=== PATIENT | male | born 1975 | race American Indian/Alaskan Native ===

== ENCOUNTER 2017-03-02 09:20 | Emergency (ER) | payer OTHER ==
[2017-03-02 09:21] VITALS: BMI 36.9
[2017-03-02] MEDS: Albuterol-Ipratrop 3 mg / 0.5 (3 ml) UD IH SCH ×3 (09:30→10:26)
[2017-03-02] MEDS ORDERED: Magnesium Sulfate 2 GM in Sodium Chloride 0.9% 100 ML IVPB ONE (09:30)
[2017-03-02 09:40] LABS: BASO # 0.06 K/mm3 (0.0-2.0); BASO % 0.6 % (0.0-3.0); EOS # 0.8 (0.0-0.7); EOS % 6.9 % (1.5-5.0); GRAN # 4.43 (1.4-6.5); GRAN % 40.9 % (50.0-68.0); LYMPH % 45.7 % (22.0-35.0); MEAN CELL VOLUME 91.4 fl (80.0-105.0); MEAN CORPUSCULAR HEMOGLOBIN 30.7 pg (25.0-35.0); MEAN CORPUSCULAR HGB CONC 33.6 g/dl (31.0-37.0); MEAN PLATELET VOLUME 11.1 fl (7.0-11.0); MONO # 0.6 (0.1-0.6); MONO % 5.9 % (1.0-6.0); RED CELL DISTRIBUTION WIDTH 14.4 % (11.5-14.5); WHITE BLOOD COUNT 10.8 10^3/ul (4.5-11.0)
[2017-03-02 09:44] VITALS: TEMP 99.2
[2017-03-02 10:06] LABS: TROPONIN I < 0.01 ng/mL
[2017-03-02 10:22] LABS: ALB/GLOB RATIO 1.6 (1.1-1.8); ALKALINE PHOSPHATASE 79 U/L (38-126); ALT/SGPT 33 U/L (7-56); AST/SGOT 30 U/L (17-59); BILIRUBIN,TOTAL 0.9 mg/dL (0.2-1.3); BLOOD UREA NITROGEN 12 mg/dL (7-21); CALCIUM 9.8 mg/dL (8.4-10.5); CARBON DIOXIDE 25 mmol/L (21-33); CHLORIDE 104 mmol/L (98-107); GFR AFRICAN-AMERICAN > 60; GLUCOSE,RANDOM 117 mg/dL (70-110); POTASSIUM 3.8 mmol/L (3.6-5.0); SODIUM 141 mmol/L (132-148); TOTAL PROTEIN 7.6 g/dL (5.8-8.3)
--- NOTE | 2017-03-02 10:46 | RAD ---
HISTORY: cough- r/o infiltrate COMPARISON: 01/10/2014 FINDINGS: LUNGS: No active pulmonary disease. PLEURA: No significant pleural effusion identified, no pneumothorax apparent. CARDIOVASCULAR: Normal. OSSEOUS STRUCTURES: No significant abnormalities. VISUALIZED UPPER ABDOMEN: Normal. OTHER FINDINGS: None. IMPRESSION: No active disease.
--- NOTE | 2017-03-02 10:56 | ED PDOC ---
Arrival/HPI - General Chief Complaint: Respiratory Distress Time Seen by Provider: 03/02/17 09:25 Historian: Patient - History of Present Illness Narrative History of Present Illness (Text): 03/02/17 09:24 A 42 year old male, whose past medical history includes asthma, presents to the emergency department complaining of typical asthma symptoms for 3 days. Patient reports using nebulizer and pump, resulting in some relief. Patient notes positive sick contact at home, but denies of any fever, or any other complaints. No recent travel. No flu shot taken. No PMD Time/Duration: < week (3 days) Past Medical History - Provider Review Nursing Documentation Reviewed: Yes - Infectious Disease Hx of Infectious Diseases: None - Tetanus Immunization Tetanus Immunization: Unknown - Cardiac Hx Cardiac Disorders: Yes (previous visit to ER for CP) - Pulmonary Hx Asthma: Yes - Neurological Hx Neurological Disorder: No - HEENT Hx HEENT Disorder: No - Renal Hx Renal Disorder: No - Endocrine/Metabolic Hx Endocrine Disorders: No - Hematological/Oncological Hx Blood Disorders: No - Integumentary Hx Dermatological Disorder: No - Musculoskeletal/Rheumatological Hx Falls: No Hx Osteoarthritis: Yes - Gastrointestinal Hx Gastrointestinal Disorders: No - Genitourinary/Gynecological Hx Genitourinary Disorders: No - Psychiatric Hx Depression: No Hx Emotional Abuse: No Hx Physical Abuse: No Hx Substance Use: No - Past Surgical History Past Surgical History: No Previous - Suicidal Assessment Feels Threatened In Home Enviroment: No Family/Social History - Physician Review Nursing Documentation Reviewed: Yes Family/Social History: No Known Family HX Smoking Status: Former Smoker Hx Alcohol Use: No Hx Substance Use: No Hx Substance Use Treatment: No Allergies/Home Meds Allergies/Adverse Reactions: Allergies Penicillins Allergy (Verified 03/02/17 09:28) RASH Home Medications: Home Meds Medication Instructions Recorded Confirmed Fluticasone/Salmeterol 500/50 0 puff INH PRN PRN 03/02/17 03/02/17 [Advair Diskus 500/50] Review of Systems - Physician Review All systems were reviewed & negative as marked: Yes - Review of Systems Constitutional: absent: Fevers Respiratory: SOB, Cough, Wheezing Physical Exam Vital Signs Reviewed: Yes Vital Signs Temp Pulse Resp BP Pulse Ox 03/02/17 14:08 99 H 18 144/95 H 98 03/02/17 11:01 107 H 17 122/75 97 11/29/17 09:39 24 100 03/02/17 09:21 99.2 F 111 H 23 177/97 H 100 Temperature: Afebrile Blood Pressure: Hypertensive Pulse: Regular Respiratory Rate: Normal Appearance: Positive for: Other (obese) Pain Distress: None Mental Status: Positive for: Alert and Oriented X 3 - Systems Exam Head: Present: Atraumatic, Normocephalic Pupils: Present: PERRL Extroacular Muscles: Present: EOMI Conjunctiva: Present: Normal Mouth: Present: Moist Mucous Membranes Neck: Present: Normal Range of Motion Respiratory/Chest: Present: Good Air Exchange, Wheezes (bilaterally) Cardiovascular: Present: Regular Rate and Rhythm, Normal S1, S2. No: Murmurs Abdomen: Present: Normal Bowel Sounds. No: Tenderness, Distention, Peritoneal Signs Back: Present: Normal Inspection Upper Extremity: Present: Normal Inspection. No: Cyanosis, Edema Lower Extremity: Present: Normal Inspection. No: Edema Neurological: Present: GCS=15, CN II-XII Intact, Speech Normal Skin: Present: Warm, Dry, Normal Color. No: Rashes Psychiatric: Present: Alert, Oriented x 3, Normal Insight, Normal Concentration Medical Decision Making ED Course and Treatment: 03/02/17 09:28 Impression: 42 year old male with asthma symptoms. Physical exam shows bilateral wheezing with good air exchange. Plan: -- EKG -- Chest X-ray -- Labs -- Duoneb -- Magnesium Sulfate IV Fluids -- IV Fluids -- Serology -- Reassess and disposition Prior Visits: Notes and results from previous visits were reviewed. Patient was last seen in the emergency department on 01/10/2014 for multiple complaints: blood in stool once, intermittent epigastric pain with occasional lower abdominal pain and associated nausea. Also, patient had pain at base of the L side of the neck down the L arm and into the L upper chest area under the clavicle region. Patient was d/c home. Progress Notes: EKG: Ordered, reviewed, and independently interpreted the EKG. Rate : 110 BPM Rhythm : Sinus tachycardia Interpretation : No ST-segment elevations or depressions, no T-wave inversions, normal intervals. Comparison : No previous EKG for comparison. 03/02/2017 10:44 Chest X-ray IMPRESSION: No active disease. Dictator: Ricky Llanos MD - Lab Interpretations Lab Results: 03/02/17 09:28 03/02/17 09:28 Lab Results 03/02/17 10:20: Influenza Typ A,B (EIA) Negative for flu a/b 03/02/17 09:28: Sodium 141, Potassium 3.8, Chloride 104, Carbon Dioxide 25, Anion Gap 16, BUN 12, Creatinine 0.8, Est GFR ( Amer) > 60, Est GFR (Non- Af Amer) > 60, Random Glucose 117 H, Calcium 9.8, Total Bilirubin 0.9, AST 30, ALT 33, Alkaline Phosphatase 79, Lactate Dehydrogenase 642, Total Creatine Kinase 716 H, CK-MB (CK-2) 3.0, CK-MB (CK-2) % Cancelled, Troponin I < 0.01, Total Protein 7.6, Albumin 4.6, Globulin 3.0, Albumin/Globulin Ratio 1.6 03/02/17 09:28: WBC 10.8 D, RBC 5.14, Hgb 15.8, Hct 47.0, MCV 91.4, MCH 30.7, MCHC 33.6, RDW 14.4, Plt Count 204, MPV 11.1 H, Gran % 40.9 L, Lymph % (Auto) 45.7 H, Mineral % (Auto) 5.9, Eos % (Auto) 6.9 H, Baso % (Auto) 0.6, Gran # 4.43, Lymph # 5.0 H, Mineral # 0.6, Eos # 0.8 H, Baso # 0.06 I have reviewed the lab results: Yes - RAD Interpretation Radiology Orders: 03/02/17 09:28 CHEST PORTABLE [RAD] Stat - Medication Orders Current Medication Orders: Discontinued Medications Albuterol Sulfate (Albuterol 0.083% Inhal Yari (2.5 Mg/3 Ml) Ud) 2.5 mg INH STAT STA Stop: 03/02/17 12:19 Last Admin: 03/02/17 12:30 Dose: 2.5 mg Albuterol Sulfate (Albuterol 0.083% Inhal Yari (2.5 Mg/3 Ml) Ud) 2.5 mg INH STAT STA Stop: 03/02/17 14:08 Last Admin: 03/02/17 14:10 Dose: 2.5 mg Albuterol/Ipratropium (Duoneb 3 Mg/0.5 Mg (3 Ml) Ud) 3 ml IH Q15M MONIKA Last Admin: 03/02/17 10:26 Dose: 3 ml Magnesium Sulfate 2 gm/ Sodium (Chloride) 104 mls @ 102 mls/hr IVPB ONCE ONE Stop: 03/02/17 10:31 Last Admin: 03/02/17 10:06 Dose: 102 mls/hr eMAR Start Stop Document 03/02/17 10:06 SE (Rec: 03/02/17 10:06 SE [id number]) Intravenous Solution Start Date 03/02/17 Start Time 10:06 Methylprednisolone (Solu-Medrol) 125 mg IVP STAT STA Stop: 03/02/17 09:29 Last Admin: 03/02/17 09:30 Dose: 125 mg IVP Administration Document 03/02/17 09:30 SE (Rec: 03/02/17 09:47 SE [id number]) Charges for Administration # of IVP Administrations 1 - Scribe Statement The provider has reviewed the documentation as recorded by the Baldev Padilla Provider Scribe Attestation: All medical record entries made by the Scribpavel were at my direction and personally dictated by me. I have reviewed the chart and agree that the record accurately reflects my personal performance of the history, physical exam, medical decision making, and the department course for this patient. I have also personally directed, reviewed, and agree with the discharge instructions and disposition. Disposition/Present on Arrival - Present on Arrival Any Indicators Present on Arrival: No History of DVT/PE: No History of Uncontrolled Diabetes: No Urinary Catheter: No History of Decub. Ulcer: No History Surgical Site Infection Following: None - Disposition Have Diagnosis and Disposition been Completed?: Yes Diagnosis: Asthma attack Disposition: HOME/ ROUTINE Disposition Time: 13:10 Condition: IMPROVED Discharge Instructions (ExitCare): Asthma (ED) Additional Instructions: Thank you for letting us take care of you today. The emergency medical care you received today was directed at your acute symptoms. If you were prescribed any medication, please fill it and take as directed. It may take several days for your symptoms to resolve. Return to the Emergency Department if your symptoms worsen, do not improve, or if you have any other problems. Please contact your doctor or call one of the physicians/clinics you have been referred to that are listed on the Patient Visit Information form that is included in your discharge packet. Bring any paperwork you were given at discharge with you along with any medications you are taking to your follow up visit. Our treatment cannot replace ongoing medical care by a primary care provider (PCP) outside of the emergency department. Thank you for allowing the [facility] team to be part of your care today. Follow up with your doctor in 1-2 days for re-evaluation and further management. Prescriptions: Albuterol 0.083% [Albuterol 0.083% Inhal Yari (2.5 mg/3 ml) UD] 2.5 mg IH Q6 PRN #1 unit PRN Reason: asthma Benzonatate [Tessalon Perle] 100 mg PO Q8 PRN #20 capsule PRN Reason: Cough predniSONE [Prednisone] 40 mg PO DAILY #10 tab [facility] [[facility] - Follow up with primary
[2017-03-02] MEDS ORDERED: Albuterol 0.083% Inhal Sol (2.5 mg/3 mL) UD INH STA ×2 (12:18→14:07)
[2017-03-02 14:09] VITALS: BP 144/95; PULSE 99; RESP 18; O2SAT 98
--- NOTE | 2017-03-02 23:36 | CARD ---
APPROVED REPORT EKG Measurement Heart [id number] <Conclusion> Sinus tachycardia T wave abnormality, consider inferior ischemia Abnormal ECG
== END 2017-03-02 14:24 | disposition home or self-care (01) ==
LOC: ED 09:20
DX: J45.909 Unspecified asthma, uncomplicated (principal); Z87.891 Personal history of nicotine dependence; Z88.0 Allergy status to penicillin
CPT/HCPCS: 71010; 80053; 82550; 82553; 83615; 84484; 85025; 87804; 93005; 96374; 99285; J2930; J3475

== ENCOUNTER 2017-05-31 23:50 | Emergency (ER) | payer OTHER ==
[2017-05-31 23:54] VITALS: BMI 40.6
[2017-05-31 23:55] VITALS: TEMP 98.5
[2017-06-01] MEDS ORDERED: TDAP Vaccine 0.5 mL Syr IM ONE (00:28)
[2017-06-01] MEDS ORDERED: Albuterol-Ipratrop 3 mg / 0.5 (3 ml) UD IH STA (00:29)
--- NOTE | 2017-06-01 00:33 | ED PDOC ---
Arrival/HPI - General Chief Complaint: Abnormal Skin Integrity Time Seen by Provider: 06/01/17 00:28 Historian: Patient - History of Present Illness Narrative History of Present Illness (Text): 06/01/17 00:30 This 42 yo male with a pmh asthma, presents to this ED c/o left index finger laceration x [employer]. Patient stated he was opening a can, when he accidentally cut finger. He also requested medication for his asthma. He stated he has been wheezing for 2 days. Denies cp, hemoptysis, abdominal pain, skin rash, recent travel, sick contact, dizzines, or abnormal gait. Time/Duration: Other (see hpi) Context: Home Past Medical History - Provider Review Nursing Documentation Reviewed: Yes - Infectious Disease Hx of Infectious Diseases: None - Tetanus Immunization Tetanus Immunization: Unknown - Cardiac Hx Cardiac Disorders: Yes (previous visit to ER for CP) - Pulmonary Hx Asthma: Yes - Neurological Hx Neurological Disorder: No - HEENT Hx HEENT Disorder: No - Renal Hx Renal Disorder: No - Endocrine/Metabolic Hx Endocrine Disorders: No - Hematological/Oncological Hx Blood Disorders: No - Integumentary Hx Dermatological Disorder: No - Musculoskeletal/Rheumatological Hx Falls: No Hx Osteoarthritis: Yes - Gastrointestinal Hx Gastrointestinal Disorders: No - Genitourinary/Gynecological Hx Genitourinary Disorders: No - Psychiatric Hx Depression: No Hx Emotional Abuse: No Hx Physical Abuse: No Hx Substance Use: No - Past Surgical History Past Surgical History: No Previous - Suicidal Assessment Feels Threatened In Home Enviroment: No Family/Social History - Physician Review Nursing Documentation Reviewed: Yes Family/Social History: Other (noncontributory) Smoking Status: Former Smoker Hx Alcohol Use: No Hx Substance Use: No Hx Substance Use Treatment: No Allergies/Home Meds Allergies/Adverse Reactions: Allergies Penicillins Allergy (Verified 05/31/17 23:54) RASH Home Medications: Home Meds Medication Instructions Recorded Confirmed Fluticasone/Salmeterol 500/50 0 puff INH PRN PRN 03/02/17 05/31/17 [Advair Diskus 500/50] Review of Systems - Review of Systems Constitutional: Normal. absent: Fatigue, Weight Change, Fevers Eyes: Normal ENT: Normal. absent: Sore Throat, Rhinorrhea Respiratory: Wheezing. absent: SOB, Cough Cardiovascular: Normal Gastrointestinal: Normal Genitourinary Male: Normal Musculoskeletal: Normal Skin: Laceration Neurological: Normal Endocrine: Normal Hemo/Lymphatic: Normal Psychiatric: Normal Physical Exam Vital Signs Temp Pulse Resp BP Pulse Ox 05/31/17 23:55 98.5 F 122 H 21 161/104 H 97 Temperature: Afebrile Blood Pressure: Hypertensive Pulse: Tachycardic Respiratory Rate: Normal Appearance: Positive for: Well-Appearing, Non-Toxic, Comfortable Pain Distress: None Mental Status: Positive for: Alert and Oriented X 3 - Systems Exam Head: Present: Atraumatic, Normocephalic Pupils: Present: PERRL Extroacular Muscles: Present: EOMI Conjunctiva: Present: Normal Mouth: Present: Moist Mucous Membranes Neck: Present: Normal Range of Motion Respiratory/Chest: Present: Clear to Auscultation, Good Air Exchange. No: Respiratory Distress, Accessory Muscle Use Cardiovascular: Present: Regular Rate and Rhythm, Normal S1, S2. No: Murmurs Abdomen: Present: Normal Bowel Sounds. No: Tenderness, Distention, Peritoneal Signs Back: Present: Normal Inspection Upper Extremity: Present: Normal ROM, NORMAL PULSES, Neurovascularly Intact, Capillary Refill < 2s, Other (1 cm left index finger superficial laceration). No: Cyanosis, Edema Lower Extremity: Present: Normal Inspection. No: Edema Neurological: Present: GCS=15, CN II-XII Intact, Speech Normal Skin: Present: Warm, Dry, Normal Color. No: Rashes Psychiatric: Present: Alert, Oriented x 3, Normal Insight, Normal Concentration Medical Decision Making ED Course and Treatment: 06/01/17 01:15 Re-evaluation. Patient feels better. Discussed results and plan with patient who expresses understanding. All questions answered and there is agreement with the plan to discharge home with instructions. Patient stable for discharge. Return if symptoms persist or worsen. Re-evaluation Time: 01:15 Reassessment Condition: Re-examined, Improved - Medication Orders Current Medication Orders: Discontinued Medications Albuterol/Ipratropium (Duoneb 3 Mg/0.5 Mg (3 Ml) Ud) 3 ml IH STAT STA Stop: 06/01/17 00:30 Last Admin: 06/01/17 00:48 Dose: 3 ml Doxycycline Hyclate (Doryx) 100 mg PO STAT STA PRN Reason: Protocol Stop: 06/01/17 00:29 Last Admin: 06/01/17 00:48 Dose: 100 mg Prednisone (Prednisone Tab) 60 mg PO STAT ONE Stop: 06/01/17 00:30 Last Admin: 06/01/17 00:48 Dose: 60 mg Tetanus/Reduced Diphtheria/Acell Pertussis (Boostrix Vaccine Inj) 0.5 ml IM .ONCE ONE Stop: 06/01/17 00:29 Last Admin: 06/01/17 00:48 Dose: 0.5 ml Immunization Registry Document 06/01/17 00:48 CNR (Rec: 06/01/17 00:48 CNR [id number]) Immunization Registry Consent Date 03/02/17 - Procedure PROCEDURE NOTE (Text): 06/01/17 01:15 t Disposition/Present on Arrival - Present on Arrival Any Indicators Present on Arrival: No History of DVT/PE: No History of Uncontrolled Diabetes: No Urinary Catheter: No History of Decub. Ulcer: No History Surgical Site Infection Following: None - Disposition Have Diagnosis and Disposition been Completed?: Yes Diagnosis: Finger laceration, Asthma exacerbation Disposition: HOME/ ROUTINE Disposition Time: 01:16 Patient Plan: Discharge Condition: GOOD Discharge Instructions (ExitCare): Asthma, Adult (DC), Laceration Repair With Glue (DC) Additional Instructions: Call private doctor for follow up visit in 1-2 days. have your doctor repeat your blood pressure this week. Take medication as instructed. return to emergency if symptoms worsen. Keep wound clean and dry for 2 days, then clean wound daily with soap and water. Prescriptions: Albuterol HFA [Ventolin HFA 90 mcg/actuation (8 g)] 2 puff IH [id number] PRN #120 puff PRN Reason: Wheezing Doxycycline Hyclate 100 mg PO BID #14 capsule Prednisone [Deltasone] 40 mg PO DAILY #8 tablet Referrals: [facility] [Outside] - Follow up with primary [facility] [Outside] - Follow up with primary Forms: [employer] (Nauruan), WORK NOTE
[2017-06-01 01:32] VITALS: BP 142/94; PULSE 93; RESP 17; O2SAT 100
== END 2017-06-01 01:30 | disposition home or self-care (01) ==
LOC: ED 23:50
DX: S61.211A Laceration without foreign body of left index finger without damage to nail, initial encounter (principal); W26.8XXA Contact with other sharp object(s), not elsewhere classified, initial encounter; Y92.89 Other specified places as the place of occurrence of the external cause; J45.901 Unspecified asthma with (acute) exacerbation; Z87.891 Personal history of nicotine dependence; Z23 Encounter for immunization

== ENCOUNTER 2017-10-15 13:11 | Observation (INO) | payer OTHER ==
[2017-10-15 13:25] VITALS: BMI 36.6
--- NOTE | 2017-10-15 13:53 | ED PDOC ---
Arrival/HPI - General Chief Complaint: Shortness Of Breath Time Seen by Provider: 10/15/17 13:39 Historian: Patient - History of Present Illness Narrative History of Present Illness (Text): 10/15/17 13:51 Patient is a 42 year old male, ex-smoker, whose past medical history includes asthma , presents to the Emergency department complaining of 3 day duration shortness of breath and cough. Patient reports associated chest "tightness" and productive sputum. Patient also reports using nebulizer and pump with only mild improvement to symptoms. Patient denies any chest pain, leg pain, edema, fever, hemoptysis, or any other complaints. Patient denies pleuritic pain. Denies leg pain or swelling. Denies fevers or chills. Denies sore throat or cough. 10/15/17 17:43 Time/Duration: Prior to Arrival, Other (3 days ago) Symptom Onset: Gradual Symptom Course: Unchanged Quality: Tightness Activities at Onset: Light Context: Home Past Medical History - Provider Review Nursing Documentation Reviewed: Yes - Infectious Disease Hx of Infectious Diseases: None - Tetanus Immunization Tetanus Immunization: Unknown - Cardiac Hx Cardiac Disorders: Yes (previous visit to ER for CP) - Pulmonary Hx Asthma: Yes - Neurological Hx Neurological Disorder: No - HEENT Hx HEENT Disorder: No - Renal Hx Renal Disorder: No - Endocrine/Metabolic Hx Endocrine Disorders: No - Hematological/Oncological Hx Blood Disorders: No - Integumentary Hx Dermatological Disorder: No - Musculoskeletal/Rheumatological Hx Falls: No Hx Osteoarthritis: Yes - Gastrointestinal Hx Gastrointestinal Disorders: No - Genitourinary/Gynecological Hx Genitourinary Disorders: No - Psychiatric Hx Depression: No Hx Emotional Abuse: No Hx Physical Abuse: No Hx Substance Use: No - Past Surgical History Past Surgical History: No Previous - Suicidal Assessment Feels Threatened In Home Enviroment: No Family/Social History - Physician Review Nursing Documentation Reviewed: Yes Family/Social History: No Known Family HX Smoking Status: Former Smoker Hx Alcohol Use: No Hx Substance Use: No Hx Substance Use Treatment: No Allergies/Home Meds Allergies/Adverse Reactions: Allergies Penicillins Allergy (Verified 05/31/17 23:54) RASH Home Medications: Home Meds Medication Instructions Recorded Confirmed Mometasone/Formoterol [Dulera 200 1 puff IH PRN PRN 10/15/17 10/15/17 Mcg/5 Mcg Inhaler] Review of Systems - Review of Systems Constitutional: absent: Fevers Respiratory: SOB, Sputum Cardiovascular: Chest Pain. absent: Edema, ARZATE Gastrointestinal: absent: Abdominal Pain Genitourinary Male: absent: Dysuria Musculoskeletal: absent: Back Pain Skin: absent: Rash Neurological: absent: Headache, Dizziness Endocrine: absent: Polyuria Hemo/Lymphatic: absent: Easy Bleeding Psychiatric: absent: Depression Physical Exam - Physical Exam Narrative Physical Exam (Text): 10/15/17 13:51 Head: Atraumatic. Normocephalic. Eyes: PERRL. EOMI. Conjunctivae are not pale. ENT: Mucous membranes are moist and intact. Oropharynx is clear and symmetric. Neck: Supple. Full ROM. No JVD. No lymphadenopathy. No meningeal signs. Cardiovascular: Regular rate. Regular rhythm. No murmurs, rubs, or gallops. Distal pulses are 2+ and symmetric. Pulmonary/Chest: Bilateral expiratory wheezing, no accessory muscle usage, no retractions. No stridor. Abdominal: Soft and non-distended. There is no tenderness. No rebound, guarding, or rigidity. No organomegaly. Good bowel sounds. Back: Normal inspection. Extremities: No edema. No cyanosis. No clubbing. Full range of motion in all extremities. No calf tenderness. Skin: Skin is warm and dry. No petechiae. No purpura. Neurological: Alert, awake, and oriented. No facial droop. Motor and sensory exam intact. Psychiatric: Good eye contact. Normal interaction, affect, and behavior. 10/15/17 17:45 Vital Signs Reviewed: Yes Vital Signs Temp Pulse Resp BP Pulse Ox 10/15/17 18:13 98.3 F 84 18 145/68 98 10/15/17 14:05 98.2 F 79 18 131/76 98 10/15/17 13:25 18 Temperature: Afebrile Blood Pressure: Normal Pulse: Regular Respiratory Rate: Normal Appearance: Positive for: Non-Toxic, Uncomfortable Pain Distress: Mild Mental Status: Positive for: Alert and Oriented X 3 Medical Decision Making ED Course and Treatment: 10/15/17 14:08 Impression: 42 year old male presenting to the Emergency department for shortness of breath. Differential Diagnosis included but are not limited to: Asthma exacerbation vs. pneumonia vs. bronchitis Plan: --EKG --Labs --Chest X-Ray --UA --Nebulizer --Steroids --Reassess and disposition Prior Visits: Notes and results from previous visits were reviewed. Patient was last seen in the emergency department on 03/02/17 for shortness of breath. Patient was discharged after symptoms improved. Progress Notes: Patient noted to have NO chest pain. Not hypoxic. No calf pain or swelling. No abdominal pain. No pleuritic discomfort. Denies recent travel or prolonged immobilization. Bilateral wheezing noted. Patient has been using nebulizer at home with no benefits. He denies any exertional discomfort. EKG reveals st t wave abnormality, ddx ischemia, ddx pericarditis, ddx early repolarization. After multiple nebulizers, iv steroids, wheezing persistent. Initial troponin unremarkble. Given lack of chest pain or hypoxia, will admit to remote telemetry bed for evaluation of EKG findings in light of current symptoms. Heart sounds currently strong with no hypotension noted. 10/15/17 14:18 Chest X-ray reviewed by radiologist, shows no active disease. 10/15/17 17:46 Patient updated with labs and xray findings and treatment plan. - Lab Interpretations Lab Results: 10/15/17 14:00 10/15/17 14:00 Lab Results 10/15/17 14:00: Phosphorus 2.5, Magnesium 2.3 H 10/15/17 14:00: Urine Color Yellow, Urine Appearance Clear, Urine pH 6.0, Ur Specific [place] 1.020, Urine Protein Negative, Urine Glucose (UA) Negative, Urine Ketones Negative, Urine Blood Trace-intact H, Urine Nitrate Negative, Urine Bilirubin Negative, Urine Urobilinogen 1.0 H, Ur Leukocyte Esterase Negative, Urine RBC 0 - 2, Urine WBC 0 - 2, Ur Epithelial Cells 0 - 2, Urine Bacteria Trace 10/15/17 14:00: Sodium 143, Potassium 3.4 L, Chloride 102, Carbon Dioxide 29, Anion Gap 15, BUN 16, Creatinine 0.9, Est GFR ( Amer) > 60, Est GFR (Non- Af Amer) > 60, Random Glucose 101, Calcium 9.5, Total Bilirubin 0.5, AST 25, ALT 32, Alkaline Phosphatase 69, Lactate Dehydrogenase 454, Total Creatine Kinase 346 H, CK-MB (CK-2) 1.0, CK-MB (CK-2) % Cancelled, Troponin I < 0.01, NT- Pro-B Natriuret Pep 12.2, Total Protein 8.0, Albumin 4.6, Globulin 3.5, Albumin/ Globulin Ratio 1.3 10/15/17 14:00: PT 11.4, INR 1.00, APTT 35.6 10/15/17 14:00: WBC 8.2 D, RBC 4.99, Hgb 15.4, Hct 44.2, MCV 88.6, MCH 30.9, MCHC 34.8, RDW 13.3, Plt Count 276, MPV 11.0, Gran % 55.6, Lymph % (Auto) 35.9 H , [place] % (Auto) 7.4 H, Eos % (Auto) 1.0 L, Baso % (Auto) 0.1, Gran # 4.56, Lymph # (Auto) 2.9, [place] # (Auto) 0.6, Eos # (Auto) 0.1, Baso # (Auto) 0.01 - RAD Interpretation Radiology Orders: 10/15/17 13:49 CHEST PORTABLE [RAD] Stat Bi Architect: Radiologist - EKG Interpretation EKG Interpretation (Text): EKG at 14:01 normal sinus rhythm rate of [address] elevation in aterolateral leads, consider ischemia or pericarditis Interpreted by ED Physician: Yes Type: 12 lead EKG Comparison: Different from prev. EKG - Medication Orders Current Medication Orders: Acetaminophen (Tylenol 325mg Tab) 650 mg PO Q6H PRN PRN Reason: Fever >100.4 F Last Admin: 10/16/17 09:44 Dose: [address] [facility] Pain/Vitals Document 10/16/17 09:44 VS (Rec: 10/16/17 09:46 VS [id number]) Pain Reassessment Is This A Pain ReAssessment? No Presence of Pain Presence of Pain Yes Pain Scale Used Pain Scale Used Numeric Location Pain Location Body Wheel Truing Machine Tender Description Constant Intermittent Intensity 6 Scale Used Numeric Pain Behavior Facial Grimacing Aggravating Factors None Alleviating Factors Medication Re-Assess: [facility] Pain/Vitals Document 10/16/17 10:44 SG (Rec: 10/16/17 20:20 SG [email or web address]) Pain Reassessment Is This A Pain ReAssessment? Yes Sleep Is patient sleeping during reassessment? No Presence of Pain Presence of Pain No Albuterol/Ipratropium (Duoneb 3 Mg/0.5 Mg (3 Ml) Ud) 3 ml IH [id number] PRN PRN Reason: Shortness of Breath Last Admin: 10/16/17 14:15 Dose: 3 ml Arformoterol Tartrate (Brovana) 15 mcg IH [id number] [facility] Last Admin: 10/17/17 07:49 Dose: 15 mcg Budesonide (Pulmicort Respules) 0.25 mg IH [id number] [facility] Last Admin: 10/17/17 07:50 Dose: 0.25 mg Enoxaparin Sodium (Lovenox) 40 mg SC DAILY [facility] PRN Reason: Protocol Last Admin: 10/16/17 09:46 Dose: Not Given Non-Admin Reason: Patient Refused Subcutaneous Administrations Document 10/16/17 09:46 VS (Rec: 10/16/17 09:46 VS [id number]) Injection Site MAR Injection Site Right Abdomen Charges for Administration # of Subcutaneous Administrations 1 Guaifenesin (Robitussin) 100 mg PO Q4H PRN PRN Reason: Cough Last Admin: 10/16/17 16:08 Dose: 100 mg Methylprednisolone (Solu-Medrol) 40 mg IVP Q12 [facility] Last Admin: 10/16/17 21:23 Dose: 40 mg IVP Administration Document 10/16/17 21:23 SG (Rec: 10/16/17 21:23 SG [email or web address]) Charges for Administration # of IVP Administrations 1 Pantoprazole Sodium (Protonix Ec Tab) 40 mg PO 0600 [facility] Last Admin: 10/17/17 05:26 Dose: 40 mg Discontinued Medications Albuterol/Ipratropium (Duoneb 3 Mg/0.5 Mg (3 Ml) Ud) 3 ml IH Q15M MONIKA Stop: 10/15/17 16:46 Last Admin: 10/15/17 16:45 Dose: 3 ml Sodium Chloride (Sodium Chloride 0.9%) 500 mls @ 1,000 mls/hr IV .Q30M STA Stop: 10/15/17 15:41 Last Admin: 10/15/17 16:08 Dose: 1,000 mls/hr eMAR Start Stop Document 10/15/17 16:08 HI (Rec: 10/15/17 16:08 HI [id number]) Intravenous Solution Start Date 10/15/17 Start Time 16:08 Methylprednisolone (Solu-Medrol) 125 mg IVP STAT STA Stop: 10/15/17 16:03 Last Admin: 10/15/17 16:08 Dose: 125 mg IVP Administration Document 10/15/17 16:08 HI (Rec: 10/15/17 16:09 HI [id number]) Charges for Administration # of IVP Administrations 1 Methylprednisolone (Solu-Medrol) 20 mg IVP Q12 MONIKA Potassium Chloride (K-Dur 20 Meq Er Tab) 20 meq PO STAT STA Stop: 10/15/17 15:12 Last Admin: 10/15/17 16:08 Dose: 20 meq Potassium Chloride (K-Dur 20 Meq Er Tab) 40 meq PO STAT STA Stop: 10/15/17 18:04 - Scribe Statement The provider has reviewed the documentation as recorded by the Tyibpavel [facility] All medical record entries made by the Scribpavel were at my direction and personally dictated by me. I have reviewed the chart and agree that the record accurately reflects my personal performance of the history, physical exam, medical decision making, and the department course for this patient. I have also personally directed, reviewed, and agree with the discharge instructions and disposition. Disposition/Present on Arrival - Present on Arrival Any Indicators Present on Arrival: No History of DVT/PE: No History of Uncontrolled Diabetes: No Urinary Catheter: No History Surgical Site Infection Following: None - Disposition Have Diagnosis and Disposition been Completed?: Yes Diagnosis: Asthma exacerbation, Abnormal EKG Disposition: HOSPITALIZED Disposition Time: 17:00 Patient Plan: Admission, Telemetry Patient Problems: Current Active Problems Problem Status Onset Abnormal EKG Acute Asthma exacerbation Acute Condition: FAIR
--- NOTE | 2017-10-15 14:15 | RAD ---
Date of service: 10/15/2017 HISTORY: sob COMPARISON: 02/20/2017 FINDINGS: LUNGS: No active pulmonary disease. PLEURA: No significant pleural effusion identified, no pneumothorax apparent. CARDIOVASCULAR: Normal. OSSEOUS STRUCTURES: No significant abnormalities. VISUALIZED UPPER ABDOMEN: Normal. OTHER FINDINGS: None. IMPRESSION: No active disease.
[2017-10-15 14:41] LABS: BASO # 0.01 K/mm3 (0.0-2.0); BASO % 0.1 % (0.0-3.0); EOS # 0.1 (0.0-0.7); GRAN # 4.56 (1.4-6.5); GRAN % 55.6 % (50.0-68.0); HEMOGLOBIN 15.4 g/dL (14.0-18.0); LYMPH # 2.9 (1.2-3.4); LYMPH % 35.9 % (22.0-35.0); MEAN CELL VOLUME 88.6 fl (80.0-105.0); MEAN CORPUSCULAR HEMOGLOBIN 30.9 pg (25.0-35.0); MEAN CORPUSCULAR HGB CONC 34.8 g/dl (31.0-37.0); MONO # 0.6 (0.1-0.6); MONO % 7.4 % (1.0-6.0); RBC 4.99 10^6/uL (3.5-6.1); RED CELL DISTRIBUTION WIDTH 13.3 % (11.5-14.5); WHITE BLOOD COUNT 8.2 10^3/ul (4.5-11.0)
[2017-10-15 14:42] LABS: URINE APPEARANCE CLEAR (CLEAR); URINE BILIRUBIN NEGATIVE (NEGATIVE); URINE BLOOD TRACE-INTACT (NEGATIVE); URINE COLOR YELLOW (YELLOW); URINE GLUCOSE (UA) NEGATIVE (NEGATIVE); URINE LEUKOCYTE ESTERASE NEGATIVE Leu/uL (NEGATIVE); URINE PROTEIN NEGATIVE mg/dL (<30 mg/dL)
[2017-10-15 14:45] LABS: URINE BACTERIA TRACE (NEG); URINE EPITHELIAL CELLS 0 - 2 /hpf (0-5); URINE RBC 0 - 2 /hpf (0-2); URINE WBC 0 - 2 /hpf (0-6)
[2017-10-15 14:46] LABS: PARTIAL THROMBOPLASTIN TIME 35.6 Seconds (25.1-36.5); PROTHROMBIN TIME 11.4 SECONDS (9.4-12.5)
[2017-10-15 14:48] LABS: ALB/GLOB RATIO 1.3 (1.1-1.8); ALBUMIN 4.6 g/dL (3.0-4.8); ALT/SGPT 32 U/L (7-56); AST/SGOT 25 U/L (17-59); BLOOD UREA NITROGEN 16 mg/dL (7-21); CALCIUM 9.5 mg/dL (8.4-10.5); GFR AFRICAN-AMERICAN > 60; GFR NON-AFRICAN AMERICAN > 60
[2017-10-15 15:00] LABS: B-TYPE NATRIURETIC PEPTIDE 12.2 pg/mL (0-450); TROPONIN I < 0.01 ng/mL
[2017-10-15] MEDS ORDERED: Potassium Chloride 20 mEq ER Tab PO STA ×2 (15:11→18:03)
[2017-10-15] MEDS ORDERED: Sodium Chloride 0.9% 500 ML IV STA (15:12)
[2017-10-15] MEDS: Albuterol-Ipratrop 3 mg / 0.5 (3 ml) UD IH SCH ×3 (16:09→16:45)
--- NOTE | 2017-10-15 18:18 | CP.PCM.HP ---
<Jd Madsen - Last Filed: 10/15/17 18:21> History of Present Illness - History of Present Illness History of Present Illness: Jd Madsen PGY2 IM H&P Note for Dr. Cain Mr. New is a 42-year-old male former smoker with a past medical history of asthma who presents to the ED with shortness of breath and productive cough for 3 days. Patient states that the sputum is yellow, but denies fever/chills, nausea/vomiting/diarrhea, chest pain, abdominal pain, headaches or changes in vision. Patient states that he was exposed to secondhand smoke last week which has triggered his asthma attacks in the past. Patient states that he uses his Dulera inhaler about twice a day and an albuterol inhaler as needed. Patient denies waking up at night with shortness of breath or shortness of breath on exertion. At the time of evaluation (s/p breathing treatment and steroids), the patient denies any current symptoms of chest pain or shortness of breath, and is breathing comfortably and speaking in full sentences on room air. A 12 point ROS was reviewed and is otherwise unremarkable. PMD: none currently (his meds prescribed by Dr. Franks previously) PMH: asthma PSH: none Meds: as per MAR Allergies: NKDA SHx: denies tobacco use, +ETOH socially and denies drug use FHx: non-contributory Present on Admission - Present on Admission Any Indicators Present on Admission: No Review of Systems - Review of Systems All systems: reviewed and no additional remarkable complaints except (as per HPI ) Past Patient History - Infectious Disease Hx of Infectious Diseases: None - Tetanus Immunizations Tetanus Immunization: Unknown - Past Social History Smoking Status: Former Smoker Alcohol: Occasional Drugs: Denies - CARDIAC Hx Cardiac Disorders: No - PULMONARY Hx Asthma: Yes - NEUROLOGICAL Hx Neurological Disorder: No - HEENT Hx HEENT Problems: No - RENAL Hx Chronic Kidney Disease: No - ENDOCRINE/METABOLIC Hx Endocrine Disorders: No - HEMATOLOGICAL/ONCOLOGICAL Hx Blood Disorders: No - INTEGUMENTARY Hx Dermatological Problems: No - MUSCULOSKELETAL/RHEUMATOLOGICAL Hx Falls: No - GASTROINTESTINAL Hx Gastrointestinal Disorders: No - GENITOURINARY/GYNECOLOGICAL Hx Genitourinary Disorders: No - PSYCHIATRIC Hx Depression: No Hx Emotional Abuse: No Hx Physical Abuse: No Hx Substance Use: No - SURGICAL HISTORY Hx Surgeries: No Meds Allergies/Adverse Reactions: Allergies Allergy/AdvReac Type Severity Reaction Status Date / Time Penicillins Allergy RASH Verified 05/31/17 23:54 Physical Exam - Constitutional Appears: Well, Non-toxic, No Acute Distress - Head Exam Head Exam: NORMAL INSPECTION - Eye Exam Eye Exam: EOMI, Normal appearance - ENT Exam ENT Exam: Mucous Membranes Moist - Neck Exam Neck exam: Positive for: Normal Inspection - Respiratory Exam Respiratory Exam: Clear to Auscultation Bilateral, NORMAL BREATHING PATTERN. absent: Rales, Rhonchi, Wheezes, Respiratory Distress - Cardiovascular Exam Cardiovascular Exam: RRR, +S1, +S2 - GI/Abdominal Exam GI & Abdominal Exam: Normal Bowel Sounds, Soft. absent: Distended, Tenderness - Extremities Exam Extremities exam: Positive for: normal inspection. Negative for: pedal edema - Back Exam Back exam: NORMAL INSPECTION. absent: CVA tenderness (L), CVA tenderness (R), tenderness - Neurological Exam Neurological exam: Alert - Psychiatric Exam Psychiatric exam: Normal Mood - Skin Skin Exam: Normal Color, Warm Results - Vital Signs Recent Vital Signs: Last Vital Signs Temp 98.3 F 10/15/17 18:13 Pulse 84 10/15/17 18:13 Resp 18 10/15/17 18:13 BP 145/68 10/15/17 18:13 Pulse Ox 98 10/15/17 18:13 - Labs Result Diagrams: 10/15/17 14:00 10/15/17 14:00 Assessment & Plan - Assessment and Plan (Free Text) Assessment: 42-year-old male with a PMH of asthma presenting with asthma exacerbation likely secondary to exposure to secondhand smoke. Symptoms have improved with duonebs and Solu-Medrol treatments in the ED, patient is currently asymptomatic. Plan: 1. Asthma exacerbation - CXR read as negative for pneumonias or active disease - Admit for observation on remote telemetry floor - DuoNeb's as needed - Solu-Medrol 20 every 12, taper down as needed - EKG ordered, F/U official read - O2 as needed - SaO2> 92% goal - Cardiology is consulted given presenting symptoms of chest pain and shortness of breath and obese -[place] male - Upon discharge, the patient should F/U in [facility] clinic and establish care since he doesn't have PMD 2. Hypokalemia - Supplemental repletion ordered - Magnesium level ordered - F/U a.m. labs HHD Case was reviewed and discussed with attending, Dr. Cain <Kimberly Cain - Last Filed: 10/16/17 14:11> Results - Vital Signs Recent Vital Signs: Last Vital Signs Temp 97.6 F 10/16/17 07:51 Pulse 70 10/16/17 07:51 Resp 20 10/16/17 07:51 BP 151/98 H 10/16/17 07:51 Pulse Ox 98 10/16/17 07:51 - Labs Result Diagrams: 10/16/17 06:30 10/16/17 06:30 Labs: Laboratory Results - last 24 hr 10/15/17 10/16/17 10/16/17 20:33 01:50 06:00 WBC RBC Hgb Hct MCV MCH MCHC RDW Plt Count MPV Sodium Potassium Chloride Carbon Dioxide Anion Gap BUN Creatinine Est GFR ( Amer) Est GFR (Non-Af Amer) Random Glucose Calcium Total Bilirubin AST ALT Alkaline Phosphatase Lactate Dehydrogenase 555 403 Total Creatine Kinase 326 H 321 H CK-MB (CK-2) 0.8 0.9 CK-MB (CK-2) % Cancelled Cancelled Troponin I < 0.01 < 0.01 Total Protein Albumin Globulin Albumin/Globulin Ratio Urine Opiates Screen Negative Urine Methadone Screen Negative Ur Barbiturates Screen Negative Ur Phencyclidine Scrn Negative Ur Amphetamines Screen Negative U Benzodiazepines Scrn Negative U Oth Cocaine Metabols Negative U Cannabinoids Screen Negative 10/16/17 10/16/17 06:30 06:30 WBC 9.7 RBC 4.81 Hgb 14.5 Hct 42.4 MCV 88.1 MCH 30.1 MCHC 34.2 RDW 13.2 Plt Count 275 MPV 11.4 H Sodium 142 Potassium 3.7 Chloride 104 Carbon Dioxide 25 Anion Gap 16 BUN 12 Creatinine 0.8 Est GFR ( Amer) > 60 Est GFR (Non-Af Amer) > 60 Random Glucose 133 H Calcium 9.6 Total Bilirubin 0.4 AST 27 ALT 27 Alkaline Phosphatase 65 Lactate Dehydrogenase Total Creatine Kinase CK-MB (CK-2) CK-MB (CK-2) % Troponin I Total Protein 7.8 Albumin 4.4 Globulin 3.4 Albumin/Globulin Ratio 1.3 Urine Opiates Screen Urine Methadone Screen Ur Barbiturates Screen Ur Phencyclidine Scrn Ur Amphetamines Screen U Benzodiazepines Scrn U Oth Cocaine Metabols U Cannabinoids Screen Attending/Attestation - Attestation I have personally seen and examined this patient.: Yes I have fully participated in the care of the patient.: Yes I have reviewed all pertinent clinical information: Yes Notes (Text): 10/16/17 14:09 Attending note; Patient seen and examined with the resident in ER. Patient is a 42-year-old male former smoker with a past medical history of asthma was admitted with shortness of breath and productive cough for 3 days. Patient states that the sputum is yellow. Currently no significant sputum production. Denies any fevers, chills. Denies any nausea, vomiting. Complaining of pleuritic discomfort on deep breathing. Started on DuoNeb treatment, IV steroids. EKG showed nonspecific ST-T changes. Cardiac enzymes 3 ordered. Cardiology evaluation requested. Monitor closely. Upon discharge the patient will be referred to [facility] clinic.
[2017-10-15] MEDS ORDERED: guaiFENesin 100 mg/5 ml Syrup UD PO PRN (18:33)
[2017-10-15] MEDS: Albuterol-Ipratrop 3 mg / 0.5 (3 ml) UD IH PRN (20:18)
[2017-10-15] MEDS: Budesonide 0.25 mg/2 ml Inhal Susp UD IH SCH (20:18)
[2017-10-15] MEDS: Arformoterol 15 mcg/2 ml Inh Sol IH SCH (20:18)
[2017-10-15 20:59] LABS: TROPONIN I < 0.01 ng/mL
[2017-10-15] MEDS ORDERED: Potassium Chloride 20 mEq ER Tab PO ONE (21:00)
[2017-10-15] MEDS: MethylPREDNISolone 40 mg Vial IVP SCH (21:04)
[2017-10-15 21:52] LABS: CK-MB 0.8 ng/mL (0.0-3.6)
[2017-10-15] MEDS ORDERED: MethylPREDNISolone 40 mg Vial IVP SCH (22:00)
[2017-10-16 02:23] LABS: TROPONIN I < 0.01 ng/mL
[2017-10-16 02:41] LABS: CK-MB 0.9 ng/mL (0.0-3.6)
[2017-10-16] MEDS: Pantoprazole 40 mg EC Tab PO SCH (05:49)
[2017-10-16 07:09] LABS: BARBITURATES, UR NEGATIVE (NEGATIVE); BENZODIAZEPINES, UR NEGATIVE (NEGATIVE); OPIATES, UR NEGATIVE (NEGATIVE); PHENCYCLIDINE, UR NEGATIVE (NEGATIVE)
[2017-10-16 07:28] LABS: HEMOGLOBIN 14.5 g/dL (14.0-18.0); MEAN CELL VOLUME 88.1 fl (80.0-105.0); MEAN CORPUSCULAR HEMOGLOBIN 30.1 pg (25.0-35.0); MEAN CORPUSCULAR HGB CONC 34.2 g/dl (31.0-37.0); MEAN PLATELET VOLUME 11.4 fl (7.0-11.0); RBC 4.81 10^6/uL (3.5-6.1); RED CELL DISTRIBUTION WIDTH 13.2 % (11.5-14.5); WHITE BLOOD COUNT 9.7 10^3/ul (4.5-11.0)
[2017-10-16] MEDS: Budesonide 0.25 mg/2 ml Inhal Susp UD IH SCH ×2 (07:59→20:03)
[2017-10-16] MEDS: Arformoterol 15 mcg/2 ml Inh Sol IH SCH ×2 (07:59→20:03)
[2017-10-16 08:07] LABS: ALB/GLOB RATIO 1.3 (1.1-1.8); ALBUMIN 4.4 g/dL (3.0-4.8); ALT/SGPT 27 U/L (7-56); AST/SGOT 27 U/L (17-59); BLOOD UREA NITROGEN 12 mg/dL (7-21); CALCIUM 9.6 mg/dL (8.4-10.5); GFR AFRICAN-AMERICAN > 60; GFR NON-AFRICAN AMERICAN > 60
[2017-10-16] MEDS: Enoxaparin 40 mg Syringe SC SCH (09:46)
[2017-10-16] MEDS: MethylPREDNISolone 40 mg Vial IVP SCH ×2 (09:47→21:23)
--- NOTE | 2017-10-16 12:03 | CP.PCM.PN ---
<Wei Cunha - Last Filed: 10/16/17 13:44> Subjective - Date & Time of Evaluation Date of Evaluation: 10/16/17 Time of Evaluation: 12:00 - Subjective Subjective: Wei Cunha D.O PGY-1, Internal Medicine progress note for Dr. Cain Patient was examined at bedside, no acute overnight events. Patient offers no new complaints at this time. Denies fevers, chills, chest pain, shortness of breath, abdominal pain, N/V/D. Objective - Vital Signs/Intake and Output Vital Signs (last 24 hours): Temp Pulse Resp BP Pulse Ox 97.6 F 70 20 151/98 H 98 10/16/17 07:51 10/16/17 07:51 10/16/17 07:51 10/16/17 07:51 10/16/17 07:51 Intake and Output: 10/16/17 10/16/17 06:59 18:59 Intake Total 240 Balance 240 - Medications Medications: Current Medications Acetaminophen (Tylenol 325mg Tab) 650 mg PO Q6H PRN PRN Reason: Fever >100.4 F Last Admin: 10/16/17 09:44 Dose: 650 mg Albuterol/Ipratropium (Duoneb 3 Mg/0.5 Mg (3 Ml) Ud) 3 ml IH [id number] PRN PRN Reason: Shortness of Breath Last Admin: 10/15/17 20:18 Dose: 3 ml Arformoterol Tartrate (Brovana) 15 mcg IH [id number] [facility] Last Admin: 10/16/17 07:59 Dose: 15 mcg Budesonide (Pulmicort Respules) 0.25 mg IH [id number] [facility] Last Admin: 10/16/17 07:59 Dose: 0.25 mg Enoxaparin Sodium (Lovenox) 40 mg SC DAILY [facility] PRN Reason: Protocol Last Admin: 10/16/17 09:46 Dose: Not Given Guaifenesin (Robitussin) 100 mg PO Q4H PRN PRN Reason: Cough Methylprednisolone (Solu-Medrol) 40 mg IVP Q12 [facility] Last Admin: 10/16/17 09:47 Dose: 40 mg Pantoprazole Sodium (Protonix Ec Tab) 40 mg PO 0600 [facility] Last Admin: 10/16/17 05:49 Dose: 40 mg - Labs Labs: 10/16/17 06:30 10/16/17 06:30 PT 11.4 SECONDS (9.4-12.5) 10/15/17 14:00 INR 1.00 (0.93-1.08) 10/15/17 14:00 APTT 35.6 Seconds (25.1-36.5) 10/15/17 14:00 - Constitutional Appears: No Acute Distress - Head Exam Head Exam: ATRAUMATIC, NORMAL INSPECTION - Eye Exam Eye Exam: Normal appearance - ENT Exam ENT Exam: Mucous Membranes Moist - Respiratory Exam Respiratory Exam: Wheezes. absent: Rales, Rhonchi, Respiratory Distress Additional comments: Mild wheezing throughout - Cardiovascular Exam Cardiovascular Exam: REGULAR RHYTHM, +S1, +S2. absent: Gallop, Rubs, Murmur - GI/Abdominal Exam GI & Abdominal Exam: Soft, Normal Bowel Sounds. absent: Tenderness - Extremities Exam Extremities Exam: absent: Calf Tenderness, Pedal Edema - Neurological Exam Neurological Exam: Alert, Awake, Oriented x3 - Psychiatric Exam Psychiatric exam: Normal Affect, Normal Mood - Skin Skin Exam: Dry, Normal Color, Warm Assessment and Plan - Assessment and Plan (Free Text) Assessment: Mr. New is a 42-year-old male with a past medical history of asthma who is presenting with shortness of breath and productive cough. Symptoms have improved with duonebs and Solu-Medrol treatments, patient is currently asymptomatic. Plan: Asthma exacerbation - CXR read as negative for pneumonias or active disease - Admit for observation on remote telemetry floor - DuoNeb's as needed - Solu-Medrol 40mg Q12 - O2 as needed - SaO2> 92% goal - Cardiology is consulted given presenting symptoms of chest pain and shortness of breath and obese -[place] male Hypokalemia, resolved - Potassium repleted - Magnesium level 2.3 GI/DVT prophylaxis - Protonix - Lovenox Patient seen, examined, and case discussed with Dr. Cain <Kimberly Cain - Last Filed: 10/16/17 14:12> Objective - Vital Signs/Intake and Output Vital Signs (last 24 hours): Temp Pulse Resp BP Pulse Ox 97.6 F 70 20 151/98 H 98 10/16/17 07:51 10/16/17 07:51 10/16/17 07:51 10/16/17 07:51 10/16/17 07:51 Intake and Output: 10/16/17 10/16/17 06:59 18:59 Intake Total 240 Balance 240 - Medications Medications: Current Medications Acetaminophen (Tylenol 325mg Tab) 650 mg PO Q6H PRN PRN Reason: Fever >100.4 F Last Admin: 10/16/17 09:44 Dose: 650 mg Albuterol/Ipratropium (Duoneb 3 Mg/0.5 Mg (3 Ml) Ud) 3 ml IH [id number] PRN PRN Reason: Shortness of Breath Last Admin: 10/15/17 20:18 Dose: 3 ml Arformoterol Tartrate (Brovana) 15 mcg IH [id number] [facility] Last Admin: 10/16/17 07:59 Dose: 15 mcg Budesonide (Pulmicort Respules) 0.25 mg IH [id number] [facility] Last Admin: 10/16/17 07:59 Dose: 0.25 mg Enoxaparin Sodium (Lovenox) 40 mg SC DAILY [facility] PRN Reason: Protocol Last Admin: 10/16/17 09:46 Dose: Not Given Guaifenesin (Robitussin) 100 mg PO Q4H PRN PRN Reason: Cough Methylprednisolone (Solu-Medrol) 40 mg IVP Q12 [facility] Last Admin: 10/16/17 09:47 Dose: 40 mg Pantoprazole Sodium (Protonix Ec Tab) 40 mg PO 0600 [facility] Last Admin: 10/16/17 05:49 Dose: 40 mg - Labs Labs: 10/16/17 06:30 10/16/17 06:30 PT 11.4 SECONDS (9.4-12.5) 10/15/17 14:00 INR 1.00 (0.93-1.08) 10/15/17 14:00 APTT 35.6 Seconds (25.1-36.5) 10/15/17 14:00 Attending/Attestation - Attestation I have personally seen and examined this patient.: Yes I have fully participated in the care of the patient.: Yes I have reviewed all pertinent clinical information, including history, physical exam and plan: Yes Notes (Text): 10/16/17 14:11 Attending note; Patient seen and examined with the resident. Patient is a 42-year-old male former smoker with a past medical history of asthma was admitted with shortness of breath and productive cough for 3 days. Patient states that the sputum is yellow. Currently no significant sputum production. Denies any fevers, chills. Denies any nausea, vomiting. Complaining of pleuritic discomfort on deep breathing. Acute asthma exacerbation. Currently no tachycardia or hypoxia. Wheezing is improved significantly. Started on DuoNeb treatment, IV steroids. Cough ; continue Robitussin . EKG showed nonspecific ST-T changes. Cardiac enzymes 3 negative.echocardiogram ordered. Cardiology evaluation requested. Possible discharge home tomorrow. Upon discharge the patient will be referred to [facility].
[2017-10-16] MEDS: Albuterol-Ipratrop 3 mg / 0.5 (3 ml) UD IH PRN (14:15)
--- NOTE | 2017-10-16 14:16 | CON ---
DATE: 10/16/2017 REQUESTING PHYSICIAN: Kimberly Cain MD. REASON FOR CONSULTATION: Chest discomfort. HISTORY: This is a 42-year-old man with a history of asthma, who presented to the emergency room with complaints of productive cough and dyspnea. He also complained of back discomfort, which he describes as a sharp sensation. He presents to the emergency room for treatment and evaluation. He was given nebulizer therapy and steroids and has improvement in his symptoms. He has had no further back pain. He denies any prior cardiac history. He denies any history of hypertension. He is not diabetic. He does not smoke. He is uncertain of his cholesterol status. FAMILY HISTORY: There is no family history of premature heart disease. CURRENT MEDICATIONS: Include Brovana, DuoNeb inhaler, Lovenox, Protonix, budesonide inhaler, methylprednisolone. ALLERGIES: PENICILLIN. SOCIAL HISTORY: He does not smoke or drink. FAMILY HISTORY: Unremarkable for premature heart disease. REVIEW OF SYSTEMS: Ten 10-point review of systems is otherwise unremarkable. PHYSICAL EXAMINATION: GENERAL: He is an overweight middle-aged man. VITAL SIGNS: His blood pressure is 145/90 with a pulse of 70 in sinus, respirations are 16. He is afebrile. HEENT: Normocephalic, atraumatic. NECK: Supple. No JVD noted. CHEST: Few scattered coarse rhonchi heard. HEART: PMI displaced laterally with systolic murmur in the lower left sternal border. ABDOMEN: Soft, mildly obese, nontender, normoactive bowel sounds. EXTREMITIES: No edema. SKIN: Warm and dry. PSYCHIATRIC: Normal mood and affect. NEUROLOGIC: Alert and oriented x3. No gross motor or sensory deficits appreciable. DIAGNOSTIC DATA: White count 9.7, hemoglobin and hematocrit 14.5 and 42.4 with platelet count 275,000. PT/PTT are normal. Potassium 3.7, BUN and creatinine are 12 and 0.8. Three sets of cardiac enzymes are negative. Total CK is elevated; however, the MB fraction is negative. Chest x-ray reveals normal cardiac silhouette with clear lung jordan. Electrocardiogram reveals sinus rhythm with anterolateral ST-T changes. IMPRESSION: 1. Back pain, likely due to musculoskeletal cause. Doubt cardiac ischemia. 2. Recent exacerbation of asthma, clinically improved. 3. Abnormal electrocardiogram. Needs eventual screening stress test. RECOMMENDATIONS: Current treatment should continue. An outpatient echocardiogram and stress test will be arranged. Continued risk factor control is advised. Avoidance of tobacco use would be important. Thank you for this consultation. We will be happy to follow along throughout his hospital course. Tavon Garza MD [facility]
--- NOTE | 2017-10-16 17:12 | CARD ---
APPROVED REPORT Date of service: 10/15/2017 EKG Measurement Heart [id number] <Conclusion> Normal sinus rhythm ST elevation, consider early repolarization, pericarditis, or injury ST & T wave abnormality, consider inferior ischemia Abnormal ECG
[2017-10-17] MEDS: Pantoprazole 40 mg EC Tab PO SCH (05:26)
[2017-10-17 06:39] LABS: GRAN # 10.18 (1.4-6.5); GRAN % 80.9 % (50.0-68.0); LYMPH # 1.8 (1.2-3.4); LYMPH % 14.3 % (22.0-35.0); MEAN CELL VOLUME 88.9 fl (80.0-105.0); MEAN CORPUSCULAR HGB CONC 33.7 g/dl (31.0-37.0); MEAN PLATELET VOLUME 11.5 fl (7.0-11.0); MONO # 0.6 (0.1-0.6); MONO % 4.8 % (1.0-6.0); RBC 4.67 10^6/uL (3.5-6.1); RED CELL DISTRIBUTION WIDTH 13.5 % (11.5-14.5); WHITE BLOOD COUNT 12.6 10^3/ul (4.5-11.0)
[2017-10-17 07:08] LABS: ALB/GLOB RATIO 1.3 (1.1-1.8); ALBUMIN 4.2 g/dL (3.0-4.8); ALT/SGPT 17 U/L (7-56); AST/SGOT 22 U/L (17-59); BLOOD UREA NITROGEN 15 mg/dL (7-21); CALCIUM 9.3 mg/dL (8.4-10.5); GFR AFRICAN-AMERICAN > 60; GFR NON-AFRICAN AMERICAN > 60
[2017-10-17] MEDS: Arformoterol 15 mcg/2 ml Inh Sol IH SCH (07:49)
[2017-10-17] MEDS: Budesonide 0.25 mg/2 ml Inhal Susp UD IH SCH (07:50)
[2017-10-17 08:08] VITALS: BP 150/96; PULSE 62; RESP 18; TEMP 97.6; O2SAT 98
[2017-10-17] MEDS: MethylPREDNISolone 40 mg Vial IVP SCH (10:33)
[2017-10-17] MEDS: Enoxaparin 40 mg Syringe SC SCH (10:33)
--- NOTE | 2017-10-17 13:52 | CP.PCM.DIS ---
<Wei Cunha - Last Filed: 10/17/17 22:16> Provider - Provider Date of Admission: 10/15/17 17:39 Attending physician: Kimberly Cain MD Primary care physician: NO PRIMARY CARE PROVIDER Time Spent in preparation of Discharge (in minutes): 45 Diagnosis - Discharge Diagnosis (1) Asthma exacerbation Status: Resolved Priority: Medium (2) Productive cough Status: Acute Priority: Medium (3) Abnormal EKG Status: Chronic Priority: Medium (4) Atypical chest pain Status: Resolved Priority: Medium Hospital Course - Lab Results Lab Results: Most Recent Lab Values WBC 12.6 10^3/ul (4.5-11.0) H D 10/17/17 06:00 RBC 4.67 10^6/uL (3.5-6.1) 10/17/17 06:00 Hgb 14.0 g/dL (14.0-18.0) 10/17/17 06:00 Hct 41.5 % (42.0-52.0) L 10/17/17 06:00 MCV 88.9 fl (80.0-105.0) 10/17/17 06:00 MCH 30.0 pg (25.0-35.0) 10/17/17 06:00 MCHC 33.7 g/dl (31.0-37.0) 10/17/17 06:00 RDW 13.5 % (11.5-14.5) 10/17/17 06:00 Plt Count 268 10^3/uL (120.0-450.0) 10/17/17 06:00 MPV 11.5 fl (7.0-11.0) H 10/17/17 06:00 Gran % 80.9 % (50.0-68.0) H 10/17/17 06:00 Lymph % (Auto) 14.3 % (22.0-35.0) L 10/17/17 06:00 [place] % (Auto) 4.8 % (1.0-6.0) 10/17/17 06:00 Eos % (Auto) 0.0 % (1.5-5.0) L 10/17/17 06:00 Baso % (Auto) 0.0 % (0.0-3.0) 10/17/17 06:00 Gran # 10.18 (1.4-6.5) H 10/17/17 06:00 Lymph # (Auto) 1.8 (1.2-3.4) 10/17/17 06:00 [place] # (Auto) 0.6 (0.1-0.6) 10/17/17 06:00 Eos # (Auto) 0.0 (0.0-0.7) 10/17/17 06:00 Baso # (Auto) 0.00 K/mm3 (0.0-2.0) 10/17/17 06:00 PT 11.4 SECONDS (9.4-12.5) 10/15/17 14:00 INR 1.00 (0.93-1.08) 10/15/17 14:00 APTT 35.6 Seconds (25.1-36.5) 10/15/17 14:00 Sodium 141 mmol/L (132-148) 10/17/17 06:00 Potassium 4.7 mmol/L (3.6-5.0) 10/17/17 06:00 Chloride 104 mmol/L (98-107) 10/17/17 06:00 Carbon Dioxide 26 mmol/L (21-33) 10/17/17 06:00 Anion Gap 17 (10-20) 10/17/17 06:00 BUN 15 mg/dL (7-21) 10/17/17 06:00 Creatinine 0.8 mg/dl (0.8-1.5) 10/17/17 06:00 Est GFR ( Amer) > 60 10/17/17 06:00 Est GFR (Non-Af Amer) > 60 10/17/17 06:00 Random Glucose 133 mg/dL (70-110) H 10/17/17 06:00 Calcium 9.3 mg/dL (8.4-10.5) 10/17/17 06:00 Phosphorus 2.5 mg/dL (2.5-4.5) 10/15/17 14:00 Magnesium 2.3 mg/dL (1.7-2.2) H 10/15/17 14:00 Total Bilirubin 0.3 mg/dL (0.2-1.3) 10/17/17 06:00 AST 22 U/L (17-59) 10/17/17 06:00 ALT 17 U/L (7-56) 10/17/17 06:00 Alkaline Phosphatase 56 U/L (38-126) 10/17/17 06:00 Lactate Dehydrogenase 403 U/L (333-699) 10/16/17 01:50 Total Creatine Kinase 321 U/L (35-230) H 10/16/17 01:50 CK-MB (CK-2) 0.9 ng/mL (0.0-3.6) 10/16/17 01:50 CK-MB (CK-2) % Cancelled 10/15/17 14:00 Troponin I < 0.01 ng/mL 10/16/17 01:50 NT-Pro-B Natriuret Pep 12.2 pg/mL (0-450) 10/15/17 14:00 Total Protein 7.3 g/dL (5.8-8.3) 10/17/17 06:00 Albumin 4.2 g/dL (3.0-4.8) 10/17/17 06:00 Globulin 3.2 gm/dL 10/17/17 06:00 Albumin/Globulin Ratio 1.3 (1.1-1.8) 10/17/17 06:00 Urine Color Yellow (YELLOW) 10/15/17 14:00 Urine Appearance Clear (CLEAR) 10/15/17 14:00 Urine pH 6.0 (4.7-8.0) 10/15/17 14:00 Ur Specific [place] 1.020 (1.005-1.035) 10/15/17 14:00 Urine Protein Negative mg/dL (<30 mg/dL) 10/15/17 14:00 Urine Glucose (UA) Negative mg/dL (NEGATIVE) 10/15/17 14:00 Urine Ketones Negative mg/dL (NEGATIVE) 10/15/17 14:00 Urine Blood Trace-intact (NEGATIVE) H 10/15/17 14:00 Urine Nitrate Negative (NEGATIVE) 10/15/17 14:00 Urine Bilirubin Negative (NEGATIVE) 10/15/17 14:00 Urine Urobilinogen 1.0 E.U./dL (<1 E.U./dL) H 10/15/17 14:00 Ur Leukocyte Esterase Negative Wanda/uL (NEGATIVE) 10/15/17 14:00 Urine RBC 0 - 2 /hpf (0-2) 10/15/17 14:00 Urine WBC 0 - 2 /hpf (0-6) 10/15/17 14:00 Ur Epithelial Cells 0 - 2 /hpf (0-5) 10/15/17 14:00 Urine Bacteria Trace (NEG) 10/15/17 14:00 Urine Opiates Screen Negative (NEGATIVE) 10/16/17 06:00 Urine Methadone Screen Negative (NEGATIVE) 10/16/17 06:00 Ur Barbiturates Screen Negative (NEGATIVE) 10/16/17 06:00 Ur Phencyclidine Scrn Negative (NEGATIVE) 10/16/17 06:00 Ur Amphetamines Screen Negative (NEGATIVE) 10/16/17 06:00 U Benzodiazepines Scrn Negative (NEGATIVE) 10/16/17 06:00 U Oth Cocaine Metabols Negative (NEGATIVE) 10/16/17 06:00 U Cannabinoids Screen Negative (NEGATIVE) 10/16/17 06:00 - Hospital Course Hospital Course: Mr. New is a 42-year-old male former smoker with a past medical history of asthma who presents to the ED with shortness of breath and productive cough for 3 days. Patient was admitted for asthma exacerbation and was treated with brovana, pulmicort, methylprednisolone, and duoneb. Lovenox, and protonix were also administered for DVT and GI prophylaxis. During the course of his hospital stay, he underwent EKG, chest xray, and echocardiogram. EKG showed normal sinus rhythm with a rate of [address] elevation without any depression, chest xray showed no active disease, and echocardiogram showed mild concentric left ventricular hypertrophy with an ejection fraction of 60-65%. Cardiology (Dr. Garza) was consulted in the management of this patient. Cardiology recommended outpatient stress test and avoidance of tobacco. Patient was instructed to resume activity as tolerated and to start a heart healthy diet at home. Patient instructed to start new medications: albuterol for wheezing as needed, dulera for shortness of breath as needed, and prednisone taper. Patient was educated on the correct way to take medications and was scheduled for appointment at [facility] on 10/21/2017 at 3.30PM. He was instructed to get his blood pressure re-checked and repeat blood work. Patient also instructed to follow up with lead designer Dr. Garza for his stress test. Patient further informed to return to the ED for worsening of symptoms. Patient is now medically optimized for discharge. Discharge Exam - Head Exam Head Exam: ATRAUMATIC, NORMAL INSPECTION - Eye Exam Eye Exam: Normal appearance - ENT Exam ENT Exam: Mucous Membranes Moist - Respiratory Exam Respiratory Exam: Clear to PA & Lateral. absent: Rales, Rhonchi, Wheezes - Cardiovascular Exam Cardiovascular Exam: REGULAR RHYTHM, +S1, +S2. absent: Gallop, Rubs, Systolic Murmur - GI/Abdominal Exam GI & Abdominal Exam: Normal Bowel Sounds, Soft. absent: Tenderness - Extremities Exam Extremities exam: normal inspection Additional comments: no pedal edema or calf tenderness - Neurological Exam Neurological exam: Alert, Oriented x3 - Psychiatric Exam Psychiatric exam: Normal Affect, Normal Mood - Skin Skin Exam: Dry, Normal Color, Warm Discharge Plan - Discharge Medications Prescriptions: Albuterol HFA [Ventolin HFA 90 mcg/actuation (8 g)] 2 puff IH [id number] PRN #1 puff PRN Reason: Wheezing Albuterol 0.5% [Albuterol 0.5% Inhal Yari (2.5 mg/0.5 ml) UD] 2.5 mg IH Q6 PRN 30 Days neb PRN Reason: Wheezing Mometasone/Formoterol [Dulera 200 Mcg/5 Mcg Inhaler] 1 puff IH PRN PRN 30 Days # 1 hfa.aer.ad PRN Reason: Shortness Of Breath predniSONE [predniSONE Tab] 5 mg PO DAILY 15 Days #63 tab - Follow Up Plan Condition: FAIR Disposition: HOME/ ROUTINE Instructions: Asthma Action Plan, Asthma (DC) Additional Instructions: Please follow up with [facility] as scheduled on 10/21/17 at 3: 30pm Follow up to get your blood pressure re-checked and for repeat blood work Follow up with lead designer Dr. Krishna within 3-5 days for outpatient stress test. Take the medications as prescribed Take the prednisone 8 tabs for 3 days, 6tabs for 3 days, 4 tabs for 3 days, 2 tabs for 3 days, then 1 tab for 3 days. Please return if the symptoms returns. Referrals: [facility] at [facility] [Outside] Tavon Garza MD [Staff Provider] - PCP,NO [Primary Care Provider] - <Liv Wilkins - Last Filed: 10/18/17 08:50> Provider - Provider Date of Admission: 10/15/17 17:39 Attending physician: Kimberly Cain MD Primary care physician: NO PRIMARY CARE PROVIDER Hospital Course - Lab Results Lab Results: Most Recent Lab Values WBC 12.6 10^3/ul (4.5-11.0) H D 10/17/17 06:00 RBC 4.67 10^6/uL (3.5-6.1) 10/17/17 06:00 Hgb 14.0 g/dL (14.0-18.0) 10/17/17 06:00 Hct 41.5 % (42.0-52.0) L 10/17/17 06:00 MCV 88.9 fl (80.0-105.0) 10/17/17 06:00 MCH 30.0 pg (25.0-35.0) 10/17/17 06:00 MCHC 33.7 g/dl (31.0-37.0) 10/17/17 06:00 RDW 13.5 % (11.5-14.5) 10/17/17 06:00 Plt Count 268 10^3/uL (120.0-450.0) 10/17/17 06:00 MPV 11.5 fl (7.0-11.0) H 10/17/17 06:00 Gran % 80.9 % (50.0-68.0) H 10/17/17 06:00 Lymph % (Auto) 14.3 % (22.0-35.0) L 10/17/17 06:00 [place] % (Auto) 4.8 % (1.0-6.0) 10/17/17 06:00 Eos % (Auto) 0.0 % (1.5-5.0) L 10/17/17 06:00 Baso % (Auto) 0.0 % (0.0-3.0) 10/17/17 06:00 Gran # 10.18 (1.4-6.5) H 10/17/17 06:00 Lymph # (Auto) 1.8 (1.2-3.4) 10/17/17 06:00 [place] # (Auto) 0.6 (0.1-0.6) 10/17/17 06:00 Eos # (Auto) 0.0 (0.0-0.7) 10/17/17 06:00 Baso # (Auto) 0.00 K/mm3 (0.0-2.0) 10/17/17 06:00 PT 11.4 SECONDS (9.4-12.5) 10/15/17 14:00 INR 1.00 (0.93-1.08) 10/15/17 14:00 APTT 35.6 Seconds (25.1-36.5) 10/15/17 14:00 Sodium 141 mmol/L (132-148) 10/17/17 06:00 Potassium 4.7 mmol/L (3.6-5.0) 10/17/17 06:00 Chloride 104 mmol/L (98-107) 10/17/17 06:00 Carbon Dioxide 26 mmol/L (21-33) 10/17/17 06:00 Anion Gap 17 (10-20) 10/17/17 06:00 BUN 15 mg/dL (7-21) 10/17/17 06:00 Creatinine 0.8 mg/dl (0.8-1.5) 10/17/17 06:00 Est GFR ( Amer) > 60 10/17/17 06:00 Est GFR (Non-Af Amer) > 60 10/17/17 06:00 Random Glucose 133 mg/dL (70-110) H 10/17/17 06:00 Calcium 9.3 mg/dL (8.4-10.5) 10/17/17 06:00 Phosphorus 2.5 mg/dL (2.5-4.5) 10/15/17 14:00 Magnesium 2.3 mg/dL (1.7-2.2) H 10/15/17 14:00 Total Bilirubin 0.3 mg/dL (0.2-1.3) 10/17/17 06:00 AST 22 U/L (17-59) 10/17/17 06:00 ALT 17 U/L (7-56) 10/17/17 06:00 Alkaline Phosphatase 56 U/L (38-126) 10/17/17 06:00 Lactate Dehydrogenase 403 U/L (333-699) 10/16/17 01:50 Total Creatine Kinase 321 U/L (35-230) H 10/16/17 01:50 CK-MB (CK-2) 0.9 ng/mL (0.0-3.6) 10/16/17 01:50 CK-MB (CK-2) % Cancelled 10/15/17 14:00 Troponin I < 0.01 ng/mL 10/16/17 01:50 NT-Pro-B Natriuret Pep 12.2 pg/mL (0-450) 10/15/17 14:00 Total Protein 7.3 g/dL (5.8-8.3) 10/17/17 06:00 Albumin 4.2 g/dL (3.0-4.8) 10/17/17 06:00 Globulin 3.2 gm/dL 10/17/17 06:00 Albumin/Globulin Ratio 1.3 (1.1-1.8) 10/17/17 06:00 Urine Color Yellow (YELLOW) 10/15/17 14:00 Urine Appearance Clear (CLEAR) 10/15/17 14:00 Urine pH 6.0 (4.7-8.0) 10/15/17 14:00 Ur Specific [place] 1.020 (1.005-1.035) 10/15/17 14:00 Urine Protein Negative mg/dL (<30 mg/dL) 10/15/17 14:00 Urine Glucose (UA) Negative mg/dL (NEGATIVE) 10/15/17 14:00 Urine Ketones Negative mg/dL (NEGATIVE) 10/15/17 14:00 Urine Blood Trace-intact (NEGATIVE) H 10/15/17 14:00 Urine Nitrate Negative (NEGATIVE) 10/15/17 14:00 Urine Bilirubin Negative (NEGATIVE) 10/15/17 14:00 Urine Urobilinogen 1.0 E.U./dL (<1 E.U./dL) H 10/15/17 14:00 Ur Leukocyte Esterase Negative Wanda/uL (NEGATIVE) 10/15/17 14:00 Urine RBC 0 - 2 /hpf (0-2) 10/15/17 14:00 Urine WBC 0 - 2 /hpf (0-6) 10/15/17 14:00 Ur Epithelial Cells 0 - 2 /hpf (0-5) 10/15/17 14:00 Urine Bacteria Trace (NEG) 10/15/17 14:00 Urine Opiates Screen Negative (NEGATIVE) 10/16/17 06:00 Urine Methadone Screen Negative (NEGATIVE) 10/16/17 06:00 Ur Barbiturates Screen Negative (NEGATIVE) 10/16/17 06:00 Ur Phencyclidine Scrn Negative (NEGATIVE) 10/16/17 06:00 Ur Amphetamines Screen Negative (NEGATIVE) 10/16/17 06:00 U Benzodiazepines Scrn Negative (NEGATIVE) 10/16/17 06:00 U Oth Cocaine Metabols Negative (NEGATIVE) 10/16/17 06:00 U Cannabinoids Screen Negative (NEGATIVE) 10/16/17 06:00 Attending/Attestation - Attestation I have personally seen and examined this patient.: Yes I have fully participated in the care of the patient.: Yes I have reviewed all pertinent clinical information, including history, physical exam and plan: Yes Notes (Text): Patient seen and examined by me with resident at 11:40AM 10/17/17. Case including discharge plan discussed with resident. Agree with above with following additions/corrections Patient is a 42-year-old male with past medical history significant for asthma and tobacco abuse that presented to the emergency room with shortness of breath and cough. Please see dictated H&P for further details. Patient was admitted with asthma exacerbation. Patient was placed on nebulizer treatments. Was also started on IV steroids. She also placed on O2 via nasal cannula as needed. Cardiology was consulted for chest pain and shortness of breath. Patient was evaluated by cardiology who felt symptoms were likely due to musculoskeletal cause. Patient to have outpatient stress test. 2-D echo per lead designer showed left ventricular normal size, mild concentric left ventricular hypertrophy, left ventricular function normal EF of 60 is 65% ( please see official results for full details). Chest x-ray did not show any active disease. Patient was cleared for discharge by cardiology. Patient did have leukocytosis prior to discharge however this is secondary to steroids. Patient have repeat blood work done as an outpatient. Symptoms improved upon discharge. Patient's cough improved. Shortness of breath resolved. Patient was discharged home with follow-up appointment made for [facility]. Physical exam: Gen: Awake and alert sitting up in bed in no acute distress HEENT: Normocephalic, atraumatic, extraocular muscles intact, pupils equal reactive, oropharynx is pink and moist, no pharyngeal erythema or exudate appreciated, neck is supple. Cardiovascular: Normal rhythm, normal S1-S2. No murmurs, rubs, or gallops appreciated Pulmonary: Normal respiratory effort. No rhonchi, rales or wheezing appreciated. Gastrointestinal: Soft, nontender, nondistended, positive bowel sounds all 4 quadrants, no guarding Musculoskeletal: Normal range of motion all extremities, no calf tenderness, no CVA tenderness. Central nervous system: AAO 3. Cranial nerves 2 through 12 grossly intact. 5 out of 5 muscle strength all extremities. Sensation intact. Dermatologic: Skin warm and dry. Please see chart for full details. Follow up instructions. Patient follow-up with [facility] as scheduled on 10/21/2017 at 3:30 PM. Patient will need to have his blood pressure checked and repeat blood work. Patient follow-up with lead designer Dr. Krishna within 3-5 days for outpatient stress test. Patient to complete a prednisone taper and take medications as prescribed. All instructions explained to patient in detail. Patient both understands and agrees to all instructions. Time spent in discharging the patient including chart review, medication reconciliation, discussion with the patient, medical records coordinator, consultants, and nursing staff was approximately 40 minutes.
--- NOTE | 2017-10-17 17:27 | CARD ---
APPROVED REPORT Date of service: 10/17/2017 EXAM: Two-dimensional and M-mode echocardiogram with Doppler and color Doppler. INDICATION LV Function:SystolicDiastolic 2D DIMENSIONS Left Atrium (2D)4.8 (1.6-4.0cm)IVSd1.2 (0.7-1.1cm) LVDd4.6 (3.9-5.9cm)PWd1.3 (0.7-1.1cm) LVDs3.1 (2.5-4.0cm)FS (%) 33.5 % LVEF (%)62.4 (>50%) M-Mode DIMENSIONS Aortic Root3.50 (2.2-3.7cm)Aortic Cusp Exc.2.20 (1.5-2.0cm) Aortic Valve AoV Peak Ovpqzrmw733.0cm/Hardy Peak GR.7mmHg Mitral Valve MV E Ggentjtk02.8cm/sMV A Fnhpwqpk96.1cm/sE/A ratio1.3 TDI Lateral E' Peak V12.40cm/sMedial E' Peak V9.75cm/sE/Lateral E'7.6 E/Medial E'9.7 Pulmonary Valve PV Peak Vwzqhtfq66.0cm/sPV Peak Grad.2mmHg LEFT VENTRICLE The left ventricle is normal size. There is mild concentric left ventricular hypertrophy. The left ventricular function is normal.EF-60-65% There is normal LV segmental wall motion. No left ventricle thrombus noted on this study. There is no ventricular septal defect visualized. There is no left ventricular aneurysm. There is no mass noted in the left ventricle. RIGHT VENTRICLE The right ventricle is normal size. There is normal right ventricular wall thickness. The right ventricular systolic function is normal. ATRIA The left atrium is mildly dilated. The right atrium size is normal. The interatrial septum is intact with no evidence for an atrial septal defect. AORTIC VALVE The aortic valve is thickened but opens well. No aortic regurgitation is present. There is no aortic valvular stenosis. There is no aortic valvular vegetation. MITRAL VALVE The mitral valve is thickened but opens well. Mitral regurgitation is trace. There is no mitral valve stenosis. There is no evidence of mitral valve prolapse. TRICUSPID VALVE The tricuspid valve leaflets are thickened , but open well. There is trace tricuspid regurgitation.RVSP_ There is no tricuspid valve stenosis. There is no tricuspid valve prolapse or vegetation. PULMONIC VALVE The pulmonary valve is normal in structure. There is trace pulmonic valvular regurgitation. There is no pulmonic valvular stenosis. GREAT VESSELS The aortic root is normal in size. The ascending aorta is normal in size. The pulmonary artery is normal. The IVC is normal in size and collapses >50% with inspiration. PERICARDIAL EFFUSION There is no pleural effusion. There is no pericardial effusion. <Conclusion> The left ventricle is normal size. There is mild concentric left ventricular hypertrophy. The left ventricular function is normal.EF-60-65% Mitral regurgitation is trace. There is trace tricuspid regurgitation.RVSP_ The IVC is normal in size and collapses >50% with inspiration. There is no pericardial effusion. No Vegetation or thrombus noted.
== END 2017-10-17 16:24 | disposition home or self-care (01) ==
LOC: ED 13:11 → ERH 17:39 → 3RNO 19:05
PROVIDERS: ADMIT Internal Medicine; ATTEND Internal Medicine
DX: J45.901 Unspecified asthma with (acute) exacerbation (principal); D72.829 Elevated white blood cell count, unspecified; I51.7 Cardiomegaly; T38.0X5A Adverse effect of glucocorticoids and synthetic analogues, initial encounter; Z77.22 Contact with and (suspected) exposure to environmental tobacco smoke (acute) (chronic); Z79.51 Long term (current) use of inhaled steroids; Z87.891 Personal history of nicotine dependence; R07.89 Other chest pain; R94.31 Abnormal electrocardiogram [ECG] [EKG]
CPT/HCPCS: 36415; 71045; 80053; 80324; 80345; 80346; 80349; 80353; 80358; 80361; 81001; 82550; 82553; 83615; 83735; 83880; 83992; 84100; 84484; 85025; 85027; 85610; 85730; 93005; 93306; 94640; 94760; 96374; 99285; G0378; J2920; J2930; J7040

== ENCOUNTER 2017-12-16 08:39 | Emergency (ER) | payer OTHER ==
[2017-12-16 08:42] VITALS: BMI 35.9
[2017-12-16 08:45] VITALS: O2SAT 100
--- NOTE | 2017-12-16 08:46 | ED PDOC ---
Arrival/HPI - General Historian: Patient - History of Present Illness Time/Duration: < week Symptom Onset: Sudden Symptom Course: Unchanged Quality: Other Severity Level: Mild <Wei Cunha - Last Filed: 12/16/17 11:00> <RositaVenita - Last Filed: 12/16/17 11:33> - General Time Seen by Provider: 12/16/17 08:40 - History of Present Illness Narrative History of Present Illness (Text): Patient is a 42 year old male who is a former smoker and past medical history of asthma presenting to the ED with shortness of breath. He states that he started having shortness of breath 2 days ago. He has been using his nebulizer treatments at home which only relieve his symptoms for a few hours and used his rescue inhaler once. Patient also admits to having a productive cough with green sputum that started yesterday. Patient denies fevers, chills, chest pain, abdominal pain, or urinary symptoms. No PMD (Wei Cunha) Past Medical History - Provider Review Nursing Documentation Reviewed: Yes - Travel History Have you recently traveled outside [place] w/in the past 3 mons?: No - Infectious Disease Hx of Infectious Diseases: None - Tetanus Immunization Tetanus Immunization: Unknown - Cardiac Hx Cardiac Disorders: Yes (previous visit to ER for CP) - Pulmonary Hx Asthma: Yes - Neurological Hx Neurological Disorder: No - HEENT Hx HEENT Disorder: No - Renal Hx Renal Disorder: No - Endocrine/Metabolic Hx Endocrine Disorders: No - Hematological/Oncological Hx Blood Disorders: No - Integumentary Hx Dermatological Disorder: No - Musculoskeletal/Rheumatological Hx Falls: No Hx Osteoarthritis: Yes - Gastrointestinal Hx Gastrointestinal Disorders: No - Genitourinary/Gynecological Hx Genitourinary Disorders: No - Psychiatric Hx Depression: No Hx Emotional Abuse: No Hx Physical Abuse: No Hx Substance Use: No - Past Surgical History Past Surgical History: No Previous - Suicidal Assessment Feels Threatened In Home Enviroment: No <Wei Cunha - Last Filed: 12/16/17 11:00> Family/Social History - Physician Review Nursing Documentation Reviewed: Yes Family/Social History: No Known Family HX Smoking Status: Former Smoker Hx Alcohol Use: No Hx Substance Use: No Hx Substance Use Treatment: No <Wei Cunha - Last Filed: 12/16/17 11:00> Allergies/Home Meds <Madhu Cunhai - Last Filed: 12/16/17 11:00> <Venita Becker - Last Filed: 12/16/17 11:33> Allergies/Adverse Reactions: Allergies Penicillins Allergy (Verified 05/31/17 23:54) RASH Review of Systems - Physician Review All systems were reviewed & negative as marked: Yes - Review of Systems Constitutional: Normal. absent: Fevers, Night Sweats Eyes: Normal ENT: Normal Respiratory: SOB, Cough, Sputum (green sputum), Wheezing Cardiovascular: Normal. absent: Chest Pain Gastrointestinal: Normal. absent: Abdominal Pain, Constipation, Diarrhea, Nausea, Vomiting Genitourinary Male: Normal. absent: Dysuria, Frequency, Hematuria Musculoskeletal: Normal Skin: Normal. absent: Rash, Pruritis, Skin Lesions Neurological: Normal. absent: Headache, Dizziness Endocrine: Normal. absent: Diaphoresis Hemo/Lymphatic: Normal Psychiatric: Normal. absent: Anxiety, Depression <Samra Cunhaanni - Last Filed: 12/16/17 11:00> Physical Exam Temperature: Afebrile Blood Pressure: Hypertensive Pulse: Regular Respiratory Rate: Normal Appearance: Positive for: Well-Appearing, Non-Toxic, Uncomfortable Pain Distress: None Mental Status: Positive for: Alert and Oriented X 3 - Systems Exam Head: Present: Atraumatic, Normocephalic Pupils: Present: PERRL Extroacular Muscles: Present: EOMI Conjunctiva: Present: Normal Mouth: Present: Moist Mucous Membranes Respiratory/Chest: Present: Good Air Exchange, Wheezes (Expiratory wheezes heard on bilateral lungs). No: Clear to Auscultation, Respiratory Distress, Accessory Muscle Use, Rales, Rhonchi Cardiovascular: Present: Regular Rate and Rhythm, Normal S1, S2. No: Murmurs Abdomen: No: Tenderness, Distention, Peritoneal Signs Upper Extremity: Present: Normal Inspection. No: Cyanosis, Edema Lower Extremity: Present: Normal Inspection. No: Edema, CALF TENDERNESS, [place]' s Sign Neurological: Present: GCS=15, CN II-XII Intact, Speech Normal Skin: Present: Warm, Dry, Normal Color. No: Rashes Psychiatric: Present: Alert, Oriented x 3, Normal Insight, Normal Concentration <Samra Cunhaanni - Last Filed: 12/16/17 11:00> Vital Signs Temp Pulse Resp BP Pulse Ox 12/16/17 09:05 17 100 12/16/17 08:44 97.9 F 79 17 179/96 H 100 Medical Decision Making <Wei Cunha - Last Filed: 12/16/17 11:00> <Venita Becker - Last Filed: 12/16/17 11:33> ED Course and Treatment: Impression: Patient is a 42 year old male presenting to the ED with shortness of breath. Differential Diagnosis included but are not limited to: - Asthma exacerbation - Pneumonia - AL Plan: -- CBC -- CMP -- Troponin -- EKG -- CXR -- Duoneb -- Solumedrol -- Potassium PO Progress Notes: 12/16/17 09:29 - EKG NRS at 70 bpm, no change from previous EKG on 10/15/2017 - CXR: No active disease 12/16/17 10:00 - Patient reassessed, feeling better. Wheezing still present. Ordered another dose of duonebs. 12/16/17 10:52 - Potassium: 3.3, Potassium repleted. - Troponin: <0.01 12/16/17 11:00 - Patient reassessed, he states his breathing has improved. Will discharge patient with PO steroids. Patient is stable for discharge. (Wei Cunha) 12/16/17 10:36 Patient Seen with Resident: In agreement with resident note which contains more details about the patient. Patient seen and evaluated with resident. Came up with plan and treatment together. 12/16/17 11:27 Patient denies chest pain. No pleuritic pain. Currently afebrile with no hypoxia. No calf pain or swelling. Does not smoke currently. EKG unchanged from previous. Recent admission reviewed, patient's past echo reviewed. He reports sick contacts, but is not febrile and not septic in ED. Wheezing resolved after two nebulizers. Will d/c with prednisone and zithromax. Stressed need for close follow-up. Risks/side effects of medication reviewed with patient. (Venita Becker) - Lab Interpretations Lab Results: 12/16/17 09:40 12/16/17 09:40 Lab Results 12/16/17 09:40: Sodium 140, Potassium 3.3 L, Chloride 106, Carbon Dioxide 25, Anion Gap 12, BUN 15, Creatinine 0.8, Est GFR ( Amer) > 60, Est GFR (Non- Af Amer) > 60, Random Glucose 108, Calcium 9.0, Total Bilirubin 0.8, AST 23, ALT 25, Alkaline Phosphatase 73, Troponin I < 0.01, Total Protein 6.7, Albumin 3.9, Globulin 2.8, Albumin/Globulin Ratio 1.4 12/16/17 09:40: WBC 7.2 D, RBC 4.71, Hgb 14.0, Hct 40.8 L, MCV 86.6, MCH 29.7, MCHC 34.3, RDW 13.4, Plt Count 251, MPV 10.6, Gran % 57.5, Lymph % (Auto) 30.2, Andrew % (Auto) 6.8 H, Eos % (Auto) 4.9, Baso % (Auto) 0.6, Gran # 4.12, Lymph # ( Auto) 2.2, Andrew # (Auto) 0.5, Eos # (Auto) 0.4, Baso # (Auto) 0.04 - RAD Interpretation Radiology Orders: 12/16/17 09:04 CXR [CHEST PORTABLE] [RAD] Stat - Medication Orders Current Medication Orders: Discontinued Medications Albuterol/Ipratropium (Duoneb 3 Mg/0.5 Mg (3 Ml) Ud) 3 ml IH STAT STA Stop: 12/16/17 09:25 Last Admin: 12/16/17 09:49 Dose: 3 ml Albuterol/Ipratropium (Duoneb 3 Mg/0.5 Mg (3 Ml) Ud) 3 ml IH STAT STA Stop: 12/16/17 10:00 Last Admin: 12/16/17 10:11 Dose: 3 ml Methylprednisolone (Solu-Medrol) 125 mg IVP STAT STA Stop: 12/16/17 09:06 Last Admin: 12/16/17 09:49 Dose: 125 mg IVP Administration Document 12/16/17 09:49 BREAD AND PASTRY BAKER (Rec: 12/16/17 09:50 [address] [facility] [id number]) Charges for Administration # of IVP Administrations 1 Potassium Chloride (K-Dur 20 Meq Er Tab) 40 meq PO STAT STA Stop: 12/16/17 10:52 <Wei Cunha - Last Filed: 12/16/17 11:00> - PA / VINER OPERATOR / Resident Statement / has reviewed & agrees with the documentation as recorded. MD/ has examined the patient and agrees with the treatment plan. - Scribe Statement The provider has reviewed the documentation as recorded by the Scribe <Venita Becker - Last Filed: 12/16/17 11:33> - Scribe Statement Mara Scanlon All medical record entries made by the Scribe were at my direction and personally dictated by me. I have reviewed the chart and agree that the record accurately reflects my personal performance of the history, physical exam, medical decision making, and the department course for this patient. I have also personally directed, reviewed, and agree with the discharge instructions and disposition. (Venita Becker) Disposition/Present on Arrival - Present on Arrival Any Indicators Present on Arrival: No History of DVT/PE: No History of Uncontrolled Diabetes: No Urinary Catheter: No History of Decub. Ulcer: No History Surgical Site Infection Following: None - Disposition Have Diagnosis and Disposition been Completed?: Yes Patient Plan: Discharge <Wei Cunha - Last Filed: 12/16/17 11:00> - Disposition Disposition Time: 11:30 <Venita Becker - Last Filed: 12/16/17 11:33> - Disposition Diagnosis: Asthma exacerbation, Bronchitis Disposition: HOME/ ROUTINE Patient Problems: Current Active Problems Problem Status Onset Asthma exacerbation Acute Bronchitis Acute Condition: GOOD Discharge Instructions (ExitCare): Asthma, Adult (DC), Acute Bronchitis Additional Instructions: JOSSE CAMPOVERDE, thank you for letting us take care of you today. Your provider was Veinta Becker MD and you were treated for ASTHMA. The emergency medical care you received today was directed at your acute symptoms. If you were prescribed any medication, please fill it and take as directed. It may take several days for your symptoms to resolve. Return to the Emergency Department if your symptoms worsen, do not improve, or if you have any other problems. Please contact your doctor or call one of the physicians/clinics you have been referred to that are listed on the Patient Visit Information form that is included in your discharge packet. Bring any paperwork you were given at discharge with you along with any medications you are taking to your follow up visit. Our treatment cannot replace ongoing medical care by a primary care provider outside of the emergency department. Thank you for allowing the [facility] team to be part of your care today. Prescriptions: predniSONE [Prednisone] 60 mg PO DAILY #15 tab Albuterol HFA [Ventolin HFA 90 mcg/actuation (8 g)] 1 puff IH Q8 PRN #1 puff PRN Reason: Wheezing Azithromycin [Zithromax] 250 mg PO DAILY #6 tab Referrals: Mariela Ortiz MD [Medical Doctor] - Follow up with primary Forms: [employer] ([employer])
[2017-12-16] MEDS ORDERED: Albuterol-Ipratrop 3 mg / 0.5 (3 ml) UD IH PRN (09:05)
[2017-12-16] MEDS ORDERED: Albuterol-Ipratrop 3 mg / 0.5 (3 ml) UD IH STA ×2 (09:24→09:59)
--- NOTE | 2017-12-16 09:39 | RAD ---
Date of service: 12/16/2017 HISTORY: SOB COMPARISON: 10/15/2017 FINDINGS: LUNGS: No active pulmonary disease. PLEURA: No significant pleural effusion identified, no pneumothorax apparent. CARDIOVASCULAR: Normal. OSSEOUS STRUCTURES: No significant abnormalities. VISUALIZED UPPER ABDOMEN: Normal. OTHER FINDINGS: None. IMPRESSION: No active disease.
[2017-12-16 09:49] LABS: BASO # 0.04 K/mm3 (0.0-2.0); BASO % 0.6 % (0.0-3.0); EOS # 0.4 (0.0-0.7); EOS % 4.9 % (1.5-5.0); GRAN # 4.12 (1.4-6.5); GRAN % 57.5 % (50.0-68.0); LYMPH # 2.2 (1.2-3.4); LYMPH % 30.2 % (22.0-35.0); MEAN CELL VOLUME 86.6 fl (80.0-105.0); MEAN CORPUSCULAR HEMOGLOBIN 29.7 pg (25.0-35.0); MEAN CORPUSCULAR HGB CONC 34.3 g/dl (31.0-37.0); MEAN PLATELET VOLUME 10.6 fl (7.0-11.0); MONO # 0.5 (0.1-0.6); MONO % 6.8 % (1.0-6.0); RBC 4.71 10^6/uL (3.5-6.1); RED CELL DISTRIBUTION WIDTH 13.4 % (11.5-14.5); WHITE BLOOD COUNT 7.2 10^3/ul (4.5-11.0)
[2017-12-16 09:59] LABS: ALB/GLOB RATIO 1.4 (1.1-1.8); ALBUMIN 3.9 g/dL (3.0-4.8); ALT/SGPT 25 U/L (7-56); AST/SGOT 23 U/L (17-59); BLOOD UREA NITROGEN 15 mg/dL (7-21); GFR NON-AFRICAN AMERICAN > 60
[2017-12-16 10:09] LABS: TROPONIN I < 0.01 ng/mL
[2017-12-16] MEDS ORDERED: Potassium Chloride 20 mEq ER Tab PO STA (10:51)
[2017-12-16 11:57] VITALS: PULSE 84; RESP 18; TEMP 98
[2017-12-16 11:58] VITALS: BP 180/84
--- NOTE | 2017-12-16 17:33 | CARD ---
APPROVED REPORT Date of service: 12/16/2017 EKG Measurement Heart [id number] <Conclusion> Normal sinus rhythm ST & T wave abnormality, consider inferior ischemia Abnormal ECG
== END 2017-12-16 11:57 | disposition home or self-care (01) ==
LOC: ED 08:39
DX: J45.901 Unspecified asthma with (acute) exacerbation (principal); Z87.891 Personal history of nicotine dependence
CPT/HCPCS: 71045; 80053; 84484; 85025; 93005; 94640; 96374; 99284; J2930

== ENCOUNTER 2018-03-31 14:46 | Inpatient (IN) | payer OTHER ==
[2018-03-31] MEDS ORDERED: Magnesium Sulfate 2 gm/50 ml 2 GM/50 ML BAG IVPB ONE (15:03)
--- NOTE | 2018-03-31 15:05 | ED PDOC ---
Arrival/HPI - General Chief Complaint: Shortness Of Breath Time Seen by Provider: 03/31/18 14:50 Historian: Patient - History of Present Illness Narrative History of Present Illness (Text): 03/31/18 14:59 A 43 year old male, whose past medical history includes asthma, presents to the emergency department with shortness of breath. Patient reports that he has been experiencing URI symptoms and dry cough for the past 2 weeks. The patient reports worsening symptoms. The denies fevers, chills, headache, dizziness, chest pain, dyspnea on exertion, abdominal pain, nausea, vomiting, diarrhea, back pain, neck pain, urinary/bowel changes, or any other complaint. Time/Duration: Other (2 weeks) Symptom Onset: Gradual Symptom Course: Unchanged Activities at Onset: Rest, Light Context: Home Past Medical History - Provider Review Nursing Documentation Reviewed: Yes - Infectious Disease Hx of Infectious Diseases: None - Tetanus Immunization Tetanus Immunization: Unknown - Cardiac Hx Cardiac Disorders: Yes (previous visit to ER for CP) - Pulmonary Hx Asthma: Yes - Neurological Hx Neurological Disorder: No - HEENT Hx HEENT Disorder: No - Renal Hx Renal Disorder: No - Endocrine/Metabolic Hx Endocrine Disorders: No - Hematological/Oncological Hx Blood Disorders: No - Integumentary Hx Dermatological Disorder: No - Musculoskeletal/Rheumatological Hx Falls: No Hx Osteoarthritis: Yes - Gastrointestinal Hx Gastrointestinal Disorders: No - Genitourinary/Gynecological Hx Genitourinary Disorders: No - Psychiatric Hx Depression: No Hx Emotional Abuse: No Hx Physical Abuse: No Hx Substance Use: No - Past Surgical History Past Surgical History: No Previous - Suicidal Assessment Feels Threatened In Home Enviroment: No Family/Social History - Physician Review Nursing Documentation Reviewed: Yes Family/Social History: No Known Family HX Smoking Status: Former Smoker Hx Alcohol Use: No Hx Substance Use: No Hx Substance Use Treatment: No Allergies/Home Meds Allergies/Adverse Reactions: Allergies Penicillins Allergy (Verified 05/31/17 23:54) RASH Review of Systems - Physician Review All systems were reviewed & negative as marked: Yes - Review of Systems Constitutional: absent: Fevers Respiratory: SOB, Cough Cardiovascular: absent: Chest Pain, ARZATE Gastrointestinal: absent: Abdominal Pain, Stool Changes, Diarrhea, Nausea, Vomiting Genitourinary Male: absent: Urinary Output Changes Musculoskeletal: absent: Back Pain, Neck Pain Neurological: absent: Headache, Dizziness Physical Exam - Physical Exam Narrative Physical Exam (Text): 03/31/18 15:06 Gen: VS reviewed, alert, well developed, well nourished, nontoxic, able to speak in full sentences. ENT: normal pharynx. Eye: EOMI, PERRL. Neck: no JVD, supple, no adenopathy. CV: Tachycardic with regular rhythm, no rubs, no murmur, no gallops, S1, S2, pulses equal and strong. Pulm: Mild to moderate respiratory distress. no rhonchi, breath sounds equal, no rales. Bilateral expiratory wheeze. Fair air exchange bilaterally. Abd: soft, nontender, no guarding, no rebound, no rigidity, normal bowel sounds. Ext: no edema. Skin: good color, no rash, no cyanosis. Psych: responds appropriately to questions, normal affect. Neuro: oriented x 3, CN2-12 intact grossly, motor intact, sensation intact. Vital Signs Reviewed: Yes Temperature: Afebrile Blood Pressure: Normal Pulse: Tachycardic Respiratory Rate: Normal Appearance: Positive for: Well-Appearing, Non-Toxic, Comfortable Pain Distress: None Mental Status: Positive for: Alert and Oriented X 3 Medical Decision Making ED Course and Treatment: 03/31/18 15:09 Impression: A 43 year old male presents to the emergency department with a complaint of worsening shortness of breath, cough, and URI symptoms. Plan: -- Duoneb, Medrol, Magnesium Sulfate -- Reassess and disposition Prior Visits: Notes and results from previous visits were reviewed. Progress Notes: 03/31/18 16:42 on reassessment, patient is still able to talk in full sentences, marginal improvement in wheezing with continued wheezing. will check labs, get cxr to eval for possible pneumonia, admit for asthma exacerbation 03/31/18 18:[address] daly to the hospitalist service. patient to be admitted for asthma exacerbation, continued neb tx and systemic corticosteroids. patient appears stable for remote tele-remote tele for the patient's tachycardia. - Critical Care Critical Care Minutes: 30 minutes - Scribe Statement The provider has reviewed the documentation as recorded by the Scribe Kristen Pierre Provider Scribe Attestation: All medical record entries made by the Scribe were at my direction and personally dictated by me. I have reviewed the chart and agree that the record accurately reflects my personal performance of the history, physical exam, medical decision making, and the department course for this patient. I have also personally directed, reviewed, and agree with the discharge instructions and disposition. Disposition/Present on Arrival - Present on Arrival Any Indicators Present on Arrival: No History of DVT/PE: No History of Uncontrolled Diabetes: No Urinary Catheter: No History of Decub. Ulcer: No History Surgical Site Infection Following: None - Disposition Have Diagnosis and Disposition been Completed?: Yes Diagnosis: Asthma exacerbation Disposition: HOSPITALIZED Disposition Time: 16:43 Patient Plan: Admission Patient Problems: Current Active Problems Problem Status Onset Asthma exacerbation Acute Condition: STABLE
[2018-03-31] MEDS: Albuterol-Ipratrop 3 mg / 0.5 (3 ml) UD IH SCH ×3 (15:24→15:55)
[2018-03-31 16:57] LABS: BASO # 0.04 K/mm3 (0.0-2.0); BASO % 0.4 % (0.0-3.0); EOS # 0.7 (0.0-0.7); EOS % 7.5 % (1.5-5.0); GRAN # 4.32 (1.4-6.5); HEMOGLOBIN 14.8 g/dL (14.0-18.0); LYMPH # 3.2 (1.2-3.4); LYMPH % 35.1 % (22.0-35.0); MEAN CELL VOLUME 90.9 fl (80.0-105.0); MEAN PLATELET VOLUME 11.2 fl (7.0-11.0); MONO # 0.8 (0.1-0.6); RBC 4.94 10^6/uL (3.5-6.1); RED CELL DISTRIBUTION WIDTH 14.5 % (11.5-14.5)
[2018-03-31 17:37] LABS: BLOOD UREA NITROGEN 17 mg/dL (7-21); CALCIUM 8.9 mg/dL (8.4-10.5); GFR NON-AFRICAN AMERICAN > 60
[2018-03-31] MEDS ORDERED: Albuterol 0.083% Inhal Sol (2.5 mg/3 mL) UD INH STA ×2 (18:00→20:34)
[2018-03-31 19:00] VITALS: RESP 20
[2018-03-31] MEDS ORDERED: Albuterol 0.083% Inhal Sol (2.5 mg/3 mL) UD INH PRN (19:29)
[2018-03-31] MEDS: Albuterol 0.083% Inhal Sol (2.5 mg/3 mL) UD INH SCH ×2 (20:30→23:47)
--- NOTE | 2018-03-31 20:38 | CP.PCM.HP ---
History of Present Illness - History of Present Illness History of Present Illness: Michael Wilkins DO PGY1 - Internal Medicine Grinder Tender - Hospital H&P CC: SOB, Cough, Wheezing 43M w/ a PMH of uncontrolled asthma w/ multiple ED visits and admissions for asthma exacerbations presented to [facility] ED on 03/31 w/ c/o SOB and worsening productive cough w/ sputum. Patient cannot recall any exacerbating factors however reports he has had sick contacts in his household. He also reports exposure to second hand smoke in his house. Patient stated that he had tried his girlfriend's antibiotics w/ no effect. Patient reports having ventolin inhaler and nebulizer treatments at home which he was taking every four hours however he had no success in finding relief. Patient reports when he is not sick he uses his ventolion 1-2 times/ day. He reports in the past two weeks he's been waking up with wheezing and sob. Patient reports he has never been intubated during any of his admissions for asthma exacerbation. He also stated that he does not follow up with a PMD or Pipe Fitter Helper. He has never undergone PFT testing. He denies any post-nasal drip, or congestion. He denies any fever, chills, fatigue, chest pain, headaches, abd pain, n/v/d/c, urinary discomfort. Remainder of 12 system ROS is otherwise negative. PMD: None Pharmacy: [facility] Rx: Albuterol - Ventolin Inhaler, Nebulizer - Patient denied any other home medications; Meds not verified w/ pharmacy Allergies Penicillin; Denies environmental allergy PMH: Asthma - Dx as a child PSH: Denies Social: Former smoker, quit 10 years ago, 04/07ppd x 22years, Weekly EtOH 750ml hard liquor denies withdrawals, Denies illicit drugs, Unemployed Patient does live in a house where is frequently exposed to 2nd hand smoke/ active smokers Present on Admission - Present on Admission Any Indicators Present on Admission: No Review of Systems - Review of Systems All systems: reviewed and no additional remarkable complaints except Review of Systems: as per HPI Past Patient History - Infectious Disease Hx of Infectious Diseases: None - Tetanus Immunizations Tetanus Immunization: Unknown - Past Social History Smoking Status: Former Smoker - CARDIAC Hx Cardiac Disorders: Yes (previous visit to ER for CP) - PULMONARY Hx Asthma: Yes - NEUROLOGICAL Hx Neurological Disorder: No - HEENT Hx HEENT Problems: No - RENAL Hx Chronic Kidney Disease: No - ENDOCRINE/METABOLIC Hx Endocrine Disorders: No - HEMATOLOGICAL/ONCOLOGICAL Hx Blood Disorders: No - INTEGUMENTARY Hx Dermatological Problems: No - MUSCULOSKELETAL/RHEUMATOLOGICAL Hx Falls: No Hx Osteoarthritis: Yes - GASTROINTESTINAL Hx Gastrointestinal Disorders: No - GENITOURINARY/GYNECOLOGICAL Hx Genitourinary Disorders: No - PSYCHIATRIC Hx Depression: No Hx Emotional Abuse: No Hx Physical Abuse: No Hx Substance Use: No - SURGICAL HISTORY Hx Surgeries: No Meds Allergies/Adverse Reactions: Allergies Allergy/AdvReac Type Severity Reaction Status Date / Time Penicillins Allergy RASH Verified 05/31/17 23:54 Physical Exam - Constitutional Appears: Well, Non-toxic, No Acute Distress - Head Exam Head Exam: ATRAUMATIC, NORMOCEPHALIC - Eye Exam Eye Exam: EOMI, Normal appearance, PERRL - ENT Exam ENT Exam: Mucous Membranes Moist Additional comments: Inflammation of nasal turbinates bilaterally - Neck Exam Additional comments: No cervical lymphadenopathy - Respiratory Exam Additional comments: Diffuse wheezes bilaterally Prolonged expiratory phase - Cardiovascular Exam Cardiovascular Exam: Tachycardia, +S1, +S2. absent: Systolic Murmur - GI/Abdominal Exam GI & Abdominal Exam: Normal Bowel Sounds, Soft. absent: Tenderness - Extremities Exam Additional comments: 2+ DP/PT BL - Neurological Exam Neurological exam: Alert, CN II-XII Intact, Oriented x3 - Psychiatric Exam Psychiatric exam: Normal Affect, Normal Mood - Skin Skin Exam: Dry, Intact, Normal Color, Warm Results - Vital Signs Recent Vital Signs: Last Vital Signs Temp 98 F 03/31/18 18:51 Pulse 110 H 03/31/18 18:51 Resp 20 03/31/18 18:51 BP 141/57 L 03/31/18 18:51 Pulse Ox 99 03/31/18 18:51 - Labs Result Diagrams: 03/31/18 15:00 03/31/18 17:20 Labs: Laboratory Results - last 24 hr 03/31/18 03/31/18 15:00 17:20 WBC 9.0 RBC 4.94 Hgb 14.8 Hct 44.9 MCV 90.9 D MCH 30.0 MCHC 33.0 RDW 14.5 Plt Count 232 MPV 11.2 H Gran % 48.0 L Lymph % (Auto) 35.1 H [place] % (Auto) 9.0 H Eos % (Auto) 7.5 H Baso % (Auto) 0.4 Gran # 4.32 Lymph # (Auto) 3.2 [place] # (Auto) 0.8 H Eos # (Auto) 0.7 Baso # (Auto) 0.04 Sodium 140 Potassium 4.0 Chloride 106 Carbon Dioxide 28 Anion Gap 10 BUN 17 Creatinine 0.8 Est GFR ( Amer) > 60 Est GFR (Non-Af Amer) > 60 Random Glucose 117 H Calcium 8.9 Assessment & Plan - Assessment and Plan (Free Text) Assessment: Patient is a 43M w/ a past medical history of frequent asthma exacerbations who presented to [facility] ED on 03/27 w/ CC of SOB, Productive Cough, Wheezing. Patient is subsequently admitted for management and treatment of asthma exacerbation 2/2 bronchitis vs 2nd hand smoke PLAN: Severe Persistent Asthma w/ Asthma Exacerbation vs COPD Patient has not undergone PFT testing, however reports history of childhood asthma S/P Magneisum infusion, 60mg solumedrol, and Albuterol treatment in ED CXR - shows some pulmonary congestion; no infiltrate - as interpreted by me EKG is NST HR 102 w/o ST/T wave changes and QTc 461 -as interpreted by me Pending ABG to establish baseline Peak Flow to monitor treatment response Start Solumedrol 40 Q8 Start Flonase 50mcg QD Start Zithromax 500mg QD Start Albuterol Nebulized Q2prn/Q4sch Rapid Flu pending PPX: DVT: SCD GI: PPX Dispo: Patient will require appropriate out patient follow up with [facility] as he indicated that he does not follow up with a PMD Patient may require outpatient follow up with pulmonlogist for PFT testing Patient was seen, examined, and discussed w/ attending physician Dr. Jazlyn Wilkins DO PGY1 Internal Medicine Grinder Tender - Date & Time Date: 03/31/18 Time: 21:20
[2018-03-31] MEDS: MethylPREDNISolone 40 mg Vial IV SCH (21:46)
[2018-03-31 23:01] VITALS: BMI 37.2
[2018-03-31] MEDS ORDERED: Influenza Vaccine 60 mcg/0.5 mL SYR (4YR UP) IM ONE (23:02)
[2018-03-31] MEDS ORDERED: Pneumococcal 23-Valent Vaccine IM ONE (23:02)
[2018-04-01] MEDS ORDERED: guaiFENesin 100 mg/5 ml Syrup UD PO PRN (00:38)
[2018-04-01] MEDS: Albuterol 0.083% Inhal Sol (2.5 mg/3 mL) UD INH SCH ×5 (03:44→19:35)
[2018-04-01] MEDS: MethylPREDNISolone 40 mg Vial IV SCH ×3 (05:06→21:33)
[2018-04-01 06:42] LABS: BASO # 0.01 K/mm3 (0.0-2.0); BASO % 0.1 % (0.0-3.0); EOS % 0.1 % (1.5-5.0); GRAN # 6.34 (1.4-6.5); GRAN % 80.6 % (50.0-68.0); HEMOGLOBIN 14.3 g/dL (14.0-18.0); LYMPH # 1.3 (1.2-3.4); MEAN CORPUSCULAR HEMOGLOBIN 29.2 pg (25.0-35.0); MEAN CORPUSCULAR HGB CONC 32.8 g/dl (31.0-37.0); MEAN PLATELET VOLUME 11.2 fl (7.0-11.0); MONO # 0.3 (0.1-0.6); MONO % 3.2 % (1.0-6.0); RBC 4.9 10^6/uL (3.5-6.1); RED CELL DISTRIBUTION WIDTH 14.5 % (11.5-14.5); WHITE BLOOD COUNT 7.9 10^3/uL (4.5-11.0)
[2018-04-01 06:47] LABS: ALB/GLOB RATIO 1.4 (1.1-1.8); ALBUMIN 4.5 g/dL (3.0-4.8); ALT/SGPT 33 U/L (7-56); AST/SGOT 41 U/L (17-59); BLOOD UREA NITROGEN 14 mg/dL (7-21); CALCIUM 9.4 mg/dL (8.4-10.5); GFR NON-AFRICAN AMERICAN > 60
[2018-04-01] MEDS ORDERED: guaiFENesin DM 200 mg-20 mg/10 ml UD PO PRN (09:06)
--- NOTE | 2018-04-01 09:11 | RAD ---
Date of service: 03/31/2018 HISTORY: cough,pneumonia COMPARISON: Chest radiograph dated 12/16/2017 FINDINGS: LUNGS: No active pulmonary disease. PLEURA: No significant pleural effusion identified, no pneumothorax apparent. CARDIOVASCULAR: No aortic atherosclerotic calcification present. Cardiomediastinal silhouette stably prominent. OSSEOUS STRUCTURES: Unchanged. VISUALIZED UPPER ABDOMEN: Normal. OTHER FINDINGS: None. IMPRESSION: No active disease.
[2018-04-01] MEDS: Azithromycin 500MG/NS 250ml 500 MG/250 ML BAG IVPB SCH (10:09)
[2018-04-01] MEDS: Fluticasone Nasal 50 mcg/Spray NS SCH (10:09)
--- NOTE | 2018-04-01 14:54 | CP.PCM.PN ---
<Soumya Collins - Last Filed: 04/01/18 14:45> Subjective - Date & Time of Evaluation Date of Evaluation: 04/01/18 Time of Evaluation: 09:00 - Subjective Subjective: Soumya Collins Y1 Hospital Progress Note Patient seen and examined at bedside this morning. Admits to continued coughing. Noted to have multiple readings of high blood pressure. Will start norvasc. Offers no new complaints today. Objective - Vital Signs/Intake and Output Vital Signs (last 24 hours): Temp Pulse Resp BP Pulse Ox 98 F 94 H 20 186/96 H 96 04/01/18 08:10 04/01/18 10:00 04/01/18 08:10 04/01/18 08:10 04/01/18 08:10 Intake and Output: 04/01/18 04/01/18 06:59 18:59 Intake Total 780 Output Total 900 Balance -120 - Medications Medications: Current Medications Albuterol Sulfate (Albuterol 0.083% Inhal Yari (2.5 Mg/3 Ml) Ud) 2.5 mg INH Q2H PRN PRN Reason: Shortness of Breath Albuterol Sulfate (Albuterol 0.083% Inhal Yari (2.5 Mg/3 Ml) Ud) 2.5 mg INH [id number] ANDREA Last Admin: 04/01/18 12:05 Dose: 2.5 mg Famotidine (Pepcid) 40 mg PO HS ANDREA Last Admin: 03/31/18 21:48 Dose: 40 mg Fluticasone Propionate (Flonase) 1 actuation NS DAILY ANDREA Last Admin: 04/01/18 10:09 Dose: 1 spr Guaifenesin (Robitussin) 100 mg PO Q4H PRN PRN Reason: Cough Last Admin: 04/01/18 01:03 Dose: 100 mg Guaifenesin/Dextromethorphan (Robitussin Dm) 10 ml PO Q4H PRN PRN Reason: Cough Azithromycin (Zithromax 500mg In Ns) 500 mg in 250 mls @ 167 mls/hr IVPB DAILY ANDREA; Protocol Last Admin: 04/01/18 10:09 Dose: 167 mls/hr Methylprednisolone (Solu-Medrol) 40 mg IV Q8 ANDREA Last Admin: 04/01/18 14:25 Dose: 40 mg - Labs Labs: 04/01/18 05:30 04/01/18 05:30 - Additional Findings Additional findings: - Constitutional Appears: Well, Non-toxic, No Acute Distress - Head Exam Head Exam: ATRAUMATIC, NORMOCEPHALIC - Eye Exam Eye Exam: EOMI, Normal appearance, PERRL - ENT Exam ENT Exam: Mucous Membranes Moist Additional comments: - Neck Exam Additional comments: No cervical lymphadenopathy, normal exam - Respiratory Exam Additional comments: expiratory wheezing heard in all lung jordan. No accessory muscle use or respiratory wheezing - Cardiovascular Exam Cardiovascular Exam: Tachycardia, +S1, +S2. absent: Systolic Murmur - GI/Abdominal Exam GI & Abdominal Exam: Normal Bowel Sounds, Soft. absent: Tenderness - Extremities Exam Additional comments: no calf tenderness noted, distal pulses +2 - Neurological Exam Neurological exam: Alert, CN II-XII Intact, Oriented x3 - Skin Skin Exam: Dry, Intact, Normal Color, Warm Assessment and Plan - Assessment and Plan (Free Text) Assessment: Patient is a 43M w/ a past medical history of frequent asthma exacerbations who presented [place] [facility] [place] w/ CC of SOB, Productive Cough, Wheezing. Patient is subsequently admitted for management and treatment of asthma exacerbation 2/2 bronchitis vs 2nd hand smoke. Will need outpatient at [facility] [place] [facility] and PFT testing. Plan: Severe Persistent Asthma -poor outpatient follow up, uses family member's inhalers/meds -CXR shows no active disease -BNP WNL -ABG pending -solumedrol 40mg q8 -flonase -zithromax day 2 -robitussin-dm -albuterol prn and andrea -rapid Flu pending HTN -multiple high blood pressure readings -start on norvasc 5mg daily PPX/Diet -SCD, pepcid -HHD Patient seen and case discussed with attending, Dr. Ritter <Sergei Ritter - Last Filed: 04/01/18 15:12> Objective - Vital Signs/Intake and Output Vital Signs (last 24 hours): Temp Pulse Resp BP Pulse Ox 98 F 94 H 20 186/96 H 96 04/01/18 08:10 04/01/18 10:00 04/01/18 08:10 04/01/18 08:10 04/01/18 08:10 Intake and Output: 04/01/18 04/01/18 06:59 18:59 Intake Total 780 Output Total 900 Balance -120 - Medications Medications: Current Medications Albuterol Sulfate (Albuterol 0.083% Inhal Yari (2.5 Mg/3 Ml) Ud) 2.5 mg INH Q2H PRN PRN Reason: Shortness of Breath Albuterol Sulfate (Albuterol 0.083% Inhal Yari (2.5 Mg/3 Ml) Ud) 2.5 mg INH [id number] ANDREA Last Admin: 04/01/18 12:05 Dose: 2.5 mg Amlodipine Besylate (Norvasc) 5 mg PO DAILY ANDREA Famotidine (Pepcid) 40 mg PO HS ANDREA Last Admin: 03/31/18 21:48 Dose: 40 mg Fluticasone Propionate (Flonase) 1 actuation NS DAILY ANDREA Last Admin: 04/01/18 10:09 Dose: 1 spr Guaifenesin (Robitussin) 100 mg PO Q4H PRN PRN Reason: Cough Last Admin: 04/01/18 01:03 Dose: 100 mg Guaifenesin/Dextromethorphan (Robitussin Dm) 10 ml PO Q4H PRN PRN Reason: Cough Azithromycin (Zithromax 500mg In Ns) 500 mg in 250 mls @ 167 mls/hr IVPB DAILY ANDREA; Protocol Last Admin: 04/01/18 10:09 Dose: 167 mls/hr Methylprednisolone (Solu-Medrol) 40 mg IV Q8 ANDREA Last Admin: 04/01/18 14:25 Dose: 40 mg - Labs Labs: 04/01/18 05:30 04/01/18 05:30 Attending/Attestation - Attestation I have personally seen and examined this patient.: Yes I have fully participated in the care of the patient.: Yes I have reviewed all pertinent clinical information, including history, physical exam and plan: Yes Notes (Text): 04/01/18 15:09 43 year old male with past medical history of asthma and history of noncompliance who is admitted for shortness of breath secondary to asthma exacerbation. Continue with iv steroids and albuterol. Continue with azithromycin. Counselled on medication and outpatient follow up compliance. Will start norvasc for hypertension. Sergei Ritter MD Hospitalist.
--- NOTE | 2018-04-01 23:24 | CARD ---
APPROVED REPORT Date of service: 03/31/2018 EKG Measurement Heart [id number] <Conclusion> Sinus tachycardia Nonspecific T wave abnormality Abnormal ECG
[2018-04-02] MEDS: Albuterol 0.083% Inhal Sol (2.5 mg/3 mL) UD INH SCH ×7 (00:15→20:29)
[2018-04-02] MEDS: MethylPREDNISolone 40 mg Vial IV SCH ×3 (05:19→22:26)
[2018-04-02] MEDS: Fluticasone Nasal 50 mcg/Spray NS SCH (09:22)
[2018-04-02] MEDS: Azithromycin 500MG/NS 250ml 500 MG/250 ML BAG IVPB SCH (09:23)
[2018-04-02 09:42] LABS: GRAN # 9.72 (1.4-6.5); GRAN % 84.3 % (50.0-68.0); HEMOGLOBIN 15.2 g/dL (14.0-18.0); LYMPH % 8.9 % (22.0-35.0); MEAN CELL VOLUME 89.3 fl (80.0-105.0); MEAN CORPUSCULAR HEMOGLOBIN 29.6 pg (25.0-35.0); MEAN CORPUSCULAR HGB CONC 33.2 g/dl (31.0-37.0); MEAN PLATELET VOLUME 10.9 fl (7.0-11.0); MONO # 0.8 (0.1-0.6); MONO % 6.8 % (1.0-6.0); RBC 5.13 10^6/uL (3.5-6.1); RED CELL DISTRIBUTION WIDTH 14.9 % (11.5-14.5); WHITE BLOOD COUNT 11.5 10^3/uL (4.5-11.0)
[2018-04-02 10:06] LABS: ALB/GLOB RATIO 1.4 (1.1-1.8); ALBUMIN 4.4 g/dL (3.0-4.8); ALT/SGPT 34 U/L (7-56); AST/SGOT 30 U/L (17-59); BLOOD UREA NITROGEN 17 mg/dL (7-21); CALCIUM 9.5 mg/dL (8.4-10.5); GFR NON-AFRICAN AMERICAN > 60
--- NOTE | 2018-04-02 15:48 | CP.PCM.PN ---
<Soumya Collins - Last Filed: 04/02/18 15:44> Subjective - Date & Time of Evaluation Date of Evaluation: 04/02/18 Time of Evaluation: 10:22 - Subjective Subjective: Soumya Collins Y1 Hospital Progress Note Patient seen and examined at bedside this morning. No acute events reported overnight. Will taper down steroids. BP is still high, will increase norvasc to 10mg. Offers no new complaints today. Objective - Vital Signs/Intake and Output Vital Signs (last 24 hours): Temp Pulse Resp BP Pulse Ox 98.5 F 103 H 20 146/92 H 95 04/02/18 08:42 04/02/18 14:00 04/02/18 08:42 04/02/18 09:22 04/02/18 08:42 Intake and Output: 04/02/18 04/02/18 06:59 18:59 Intake Total 480 Balance 480 - Medications Medications: Current Medications Albuterol Sulfate (Albuterol 0.083% Inhal Yari (2.5 Mg/3 Ml) Ud) 2.5 mg INH Q2H PRN PRN Reason: Shortness of Breath Albuterol Sulfate (Albuterol 0.083% Inhal Yari (2.5 Mg/3 Ml) Ud) 2.5 mg INH [id number] ANDREA Amlodipine Besylate (Norvasc) 10 mg PO DAILY ANDREA Famotidine (Pepcid) 40 mg PO HS ANDREA Last Admin: 04/01/18 21:35 Dose: Not Given Fluticasone Propionate (Flonase) 1 actuation NS DAILY ANDREA Last Admin: 04/02/18 09:22 Dose: 1 spr Guaifenesin (Robitussin) 100 mg PO Q4H PRN PRN Reason: Cough Last Admin: 04/01/18 01:03 Dose: 100 mg Guaifenesin/Dextromethorphan (Robitussin Dm) 10 ml PO Q4H PRN PRN Reason: Cough Azithromycin (Zithromax 500mg In Ns) 500 mg in 250 mls @ 167 mls/hr IVPB DAILY ANDREA; Protocol Last Admin: 04/02/18 09:23 Dose: 167 mls/hr Methylprednisolone (Solu-Medrol) 30 mg IV Q8 ANDREA Last Admin: 04/02/18 13:49 Dose: 30 mg - Labs Labs: 04/02/18 09:30 04/02/18 09:30 - Additional Findings Additional findings: - Constitutional Appears: Well, Non-toxic, No Acute Distress - Head Exam Head Exam: ATRAUMATIC, NORMOCEPHALIC - Eye Exam Eye Exam: EOMI, Normal appearance, PERRL - ENT Exam ENT Exam: Mucous Membranes Moist Additional comments: - Neck Exam Additional comments: No cervical lymphadenopathy, normal exam - Respiratory Exam Additional comments: expiratory wheezing heard in lower lung jordan. No accessory muscle use or respiratory wheezing - Cardiovascular Exam Cardiovascular Exam: Tachycardia, +S1, +S2. absent: Systolic Murmur - GI/Abdominal Exam GI & Abdominal Exam: Normal Bowel Sounds, Soft. absent: Tenderness - Extremities Exam Additional comments: no calf tenderness noted, distal pulses +2 - Neurological Exam Neurological exam: Alert, CN II-XII Intact, Oriented x3 - Skin Skin Exam: Dry, Intact, Normal Color, Warm Assessment and Plan - Assessment and Plan (Free Text) Assessment: Patient is a 43M w/ a past medical history of frequent asthma exacerbations who presented to [facility] ED on 03/27 w/ CC of SOB, Productive Cough, Wheezing. Patient is subsequently admitted for management and treatment of asthma exacerbation 2/2 bronchitis vs 2nd hand smoke. Will need outpatient at [facility] neighborhood clinic and PFT testing. Plan: Severe Persistent Asthma -poor outpatient follow up, uses family member's inhalers/meds -CXR shows no active disease -BNP WNL -taper down solumedrol to 30mg q8 today -flonase -zithromax day 3 -robitussin-dm -albuterol prn and andrea -rapid Flu negative Mild leukocyutosis -likely 2/2 steroids -afebrile, will monitor HTN -multiple high blood pressure readings -increase to norvasc 10mg daily PPX/Diet -SCD, pepcid -HHD Patient seen and case discussed with attending, Dr. Ritter <Sergei Ritter - Last Filed: 04/02/18 16:20> Objective - Vital Signs/Intake and Output Vital Signs (last 24 hours): Temp Pulse Resp BP Pulse Ox 98.5 F 103 H 20 152/103 H 95 04/02/18 08:42 04/02/18 14:00 04/02/18 08:42 04/02/18 16:02 04/02/18 08:42 Intake and Output: 04/02/18 04/02/18 06:59 18:59 Intake Total 480 Balance 480 - Medications Medications: Current Medications Albuterol Sulfate (Albuterol 0.083% Inhal Yari (2.5 Mg/3 Ml) Ud) 2.5 mg INH Q2H PRN PRN Reason: Shortness of Breath Albuterol Sulfate (Albuterol 0.083% Inhal Yari (2.5 Mg/3 Ml) Ud) 2.5 mg INH [id number] ANDREA Amlodipine Besylate (Norvasc) 10 mg PO DAILY ANDREA Last Admin: 04/02/18 16:02 Dose: 10 mg Famotidine (Pepcid) 40 mg PO HS ANDREA Last Admin: 04/01/18 21:35 Dose: Not Given Fluticasone Propionate (Flonase) 1 actuation NS DAILY [facility] Last Admin: 04/02/18 09:22 Dose: 1 spr Guaifenesin (Robitussin) 100 mg PO Q4H PRN PRN Reason: Cough Last Admin: 04/01/18 01:03 Dose: 100 mg Guaifenesin/Dextromethorphan (Robitussin Dm) 10 ml PO Q4H PRN PRN Reason: Cough Azithromycin (Zithromax 500mg In Ns) 500 mg in 250 mls @ 167 mls/hr IVPB DAILY ANDREA; Protocol Last Admin: 04/02/18 09:23 Dose: 167 mls/hr Methylprednisolone (Solu-Medrol) 30 mg IV Q8 [facility] Last Admin: 04/02/18 13:49 Dose: 30 mg - Labs Labs: 04/02/18 09:30 04/02/18 09:30 Attending/Attestation - Attestation I have personally seen and examined this patient.: Yes I have fully participated in the care of the patient.: Yes I have reviewed all pertinent clinical information, including history, physical exam and plan: Yes Notes (Text): 04/02/18 16:19 43 year old male with past medical history of asthma and history of noncompliance who is admitted for shortness of breath secondary to asthma exacerbation. Wheezing is slowly improving on tapering iv steroids and albuterol. He is also on azithromycin. Counselled on medication and outpatient follow up compliance. Norvasc dose increased due to elevated blood pressure. Sergei Ritter MD Hospitalist.
[2018-04-03] MEDS: Albuterol 0.083% Inhal Sol (2.5 mg/3 mL) UD INH SCH ×4 (00:21→11:03)
[2018-04-03] MEDS: MethylPREDNISolone 40 mg Vial IV SCH ×2 (05:32→06:58)
[2018-04-03 07:06] LABS: GRAN # 7.95 (1.4-6.5); GRAN % 79.4 % (50.0-68.0); HEMOGLOBIN 15.4 g/dL (14.0-18.0); LYMPH # 1.5 (1.2-3.4); LYMPH % 15.2 % (22.0-35.0); MEAN CELL VOLUME 90.1 fl (80.0-105.0); MEAN CORPUSCULAR HEMOGLOBIN 29.3 pg (25.0-35.0); MEAN CORPUSCULAR HGB CONC 32.6 g/dl (31.0-37.0); MEAN PLATELET VOLUME 10.7 fl (7.0-11.0); MONO # 0.5 (0.1-0.6); MONO % 5.4 % (1.0-6.0); RBC 5.25 10^6/uL (3.5-6.1); RED CELL DISTRIBUTION WIDTH 14.7 % (11.5-14.5)
[2018-04-03 07:13] LABS: ALB/GLOB RATIO 1.4 (1.1-1.8); ALBUMIN 4.1 g/dL (3.0-4.8); ALT/SGPT 34 U/L (7-56); AST/SGOT 27 U/L (17-59); BLOOD UREA NITROGEN 16 mg/dL (7-21); CALCIUM 9.3 mg/dL (8.4-10.5); GFR NON-AFRICAN AMERICAN > 60
[2018-04-03 08:27] VITALS: BP 122/74; TEMP 97.6; O2SAT 97
[2018-04-03] MEDS ORDERED: MethylPREDNISolone 40 mg Vial IV SCH (10:00)
[2018-04-03] MEDS: Azithromycin 500MG/NS 250ml 500 MG/250 ML BAG IVPB SCH (10:22)
[2018-04-03] MEDS: Fluticasone Nasal 50 mcg/Spray NS SCH (10:54)
[2018-04-03 12:21] VITALS: PULSE 99
--- NOTE | 2018-04-03 12:35 | CP.PCM.DIS ---
<Soumya Collins - Last Filed: 04/03/18 13:44> Provider - Provider Date of Admission: 03/31/18 18:08 Attending physician: Sergei Ritter MD Primary care physician: NO PRIMARY CARE PROVIDER Consults: 03/31/18 23:02 Inpatient ENGLISH [employer] Core Measures Referral Routine Comment: asthma Physician Instructions: Reason For Exam: eval Transition In Care/Readmission Reduction Routine Comment: asthma Physician Instructions: Reason For Exam: eval Time Spent in preparation of Discharge (in minutes): 35 Hospital Course - Lab Results Lab Results: Most Recent Lab Values WBC 10.0 10^3/uL (4.5-11.0) 04/03/18 06:00 RBC 5.25 10^6/uL (3.5-6.1) 04/03/18 06:00 Hgb 15.4 g/dL (14.0-18.0) 04/03/18 06:00 Hct 47.3 % (42.0-52.0) 04/03/18 06:00 MCV 90.1 fl (80.0-105.0) 04/03/18 06:00 MCH 29.3 pg (25.0-35.0) 04/03/18 06:00 MCHC 32.6 g/dl (31.0-37.0) 04/03/18 06:00 RDW 14.7 % (11.5-14.5) H 04/03/18 06:00 Plt Count 245 10^3/uL (120.0-450.0) 04/03/18 06:00 MPV 10.7 fl (7.0-11.0) 04/03/18 06:00 Gran % 79.4 % (50.0-68.0) H 04/03/18 06:00 Lymph % (Auto) 15.2 % (22.0-35.0) L 04/03/18 06:00 [place] % (Auto) 5.4 % (1.0-6.0) 04/03/18 06:00 Eos % (Auto) 0.0 % (1.5-5.0) L 04/03/18 06:00 Baso % (Auto) 0.0 % (0.0-3.0) 04/03/18 06:00 Gran # 7.95 (1.4-6.5) H 04/03/18 06:00 Lymph # (Auto) 1.5 (1.2-3.4) 04/03/18 06:00 [place] # (Auto) 0.5 (0.1-0.6) 04/03/18 06:00 Eos # (Auto) 0.0 (0.0-0.7) 04/03/18 06:00 Baso # (Auto) 0.00 K/mm3 (0.0-2.0) 04/03/18 06:00 Sodium 137 mmol/L (132-148) 04/03/18 06:00 Potassium 4.7 mmol/L (3.6-5.0) 04/03/18 06:00 Chloride 105 mmol/L (98-107) 04/03/18 06:00 Carbon Dioxide 25 mmol/L (21-33) 04/03/18 06:00 Anion Gap 11 (10-20) 04/03/18 06:00 BUN 16 mg/dL (7-21) 04/03/18 06:00 Creatinine 0.8 mg/dl (0.8-1.5) 04/03/18 06:00 Est GFR ( Amer) > 60 04/03/18 06:00 Est GFR (Non-Af Amer) > 60 04/03/18 06:00 Random Glucose 141 mg/dL (70-110) H 04/03/18 06:00 Calcium 9.3 mg/dL (8.4-10.5) 04/03/18 06:00 Phosphorus 2.4 mg/dL (2.5-4.5) L 04/01/18 05:30 Magnesium 2.3 mg/dL (1.7-2.2) H 04/01/18 05:30 Total Bilirubin 0.4 mg/dL (0.2-1.3) 04/03/18 06:00 AST 27 U/L (17-59) 04/03/18 06:00 ALT 34 U/L (7-56) 04/03/18 06:00 Alkaline Phosphatase 60 U/L (38-126) 04/03/18 06:00 NT-Pro-B Natriuret Pep 186 pg/mL (0-450) 04/01/18 05:30 Total Protein 7.1 g/dL (5.8-8.3) 04/03/18 06:00 Albumin 4.1 g/dL (3.0-4.8) 04/03/18 06:00 Globulin 3.0 gm/dL 04/03/18 06:00 Albumin/Globulin Ratio 1.4 (1.1-1.8) 04/03/18 06:00 Influenza Typ A,B (EIA) Negative for flu a/b (NEGATIVE) 04/01/18 01:56 - Hospital Course Hospital Course: Upon admission, 43M w/ a PMH of uncontrolled asthma w/ multiple ED visits and admissions for asthma exacerbations presented to [facility] on 03/31 w/ c/o SOB and worsening productive cough w/ sputum. Patient cannot recall any exacerbating factors however reports he has had sick contacts in his household. He also reports exposure to second hand smoke in his house. Patient stated that he had tried his girlfriend's antibiotics w/ no effect. Patient reports having ventolin inhaler and nebulizer treatments at home which he was taking every four hours however he had no success in finding relief. Patient reports when he is not sick he uses his ventolion 1-2 times/ day. He reports in the past two weeks he's been waking up with wheezing and sob. Patient reports he has never been intubated during any of his admissions for asthma exacerbation. He also stated that he does not follow up with a PMD or Food Order Expediter. He has never undergone PFT testing. He denies any post-nasal drip, or congestion. During hospital course, CXR was negative for acute disease and patient started on solumedrol 40mg q8, flonase, zithromax and albuterol as needed. Rapid flu was negative. BNP was WNL. Patient given robitussin-DM for continued cough which helped control symptoms. He was noted to have continued high blood pressure with systolic BP in the 150 and initiall started on norvasc 5mg with escalation to 10mg due to uncontrolled BP. Patient's BP was controlled on 10mg norvasc with systolic BP in the 120s today. We will taper down steroids and give inhaler to patient upon discharge. Patient agreed to establish care with primary care doctor as his medicaid is not accepted by [facility] and patient agreed with discharge. All questions were an answered to patient. Discharge Exam - Additional Findings Additional findings: - Constitutional Appears: Well, Non-toxic, No Acute Distress - Head Exam Head Exam: ATRAUMATIC, NORMOCEPHALIC - Eye Exam Eye Exam: EOMI, Normal appearance, PERRL - ENT Exam ENT Exam: Mucous Membranes Moist Additional comments: - Neck Exam Additional comments: No cervical lymphadenopathy, normal exam - Respiratory Exam Additional comments: CTA B/L. No accessory muscle use or respiratory wheezing - Cardiovascular Exam Cardiovascular Exam: Tachycardia, +S1, +S2. absent: Systolic Murmur - GI/Abdominal Exam GI & Abdominal Exam: Normal Bowel Sounds, Soft. absent: Tenderness - Extremities Exam Additional comments: no calf tenderness noted, distal pulses +2 - Neurological Exam Neurological exam: Alert, CN II-XII Intact, Oriented x3 - Skin Skin Exam: Dry, Intact, Normal Color, Warm Discharge Plan - Discharge Medications Prescriptions: Albuterol 0.083% [Albuterol 0.083% Inhal Yari (2.5 mg/3 ml) UD] 2.5 mg INH Q2H PRN #1 neb PRN Reason: Shortness Of Breath Albuterol Sulfate [Ventolin Hfa] 0.09 mg IH Q4H PRN #1 ml PRN Reason: Shortness Of Breath amLODIPine [Norvasc] 10 mg PO DAILY #30 tab Methylprednisolone [Medrol Dose Pack (21 tabs)] 4 mg PO ONCE #21 mg Mometasone/Formoterol [Dulera 100 Mcg/5 Mcg Inhaler] 13 gm IH Q12H #1 hfa.aer.ad - Follow Up Plan Condition: STABLE Disposition: HOME/ ROUTINE Instructions: Cough in Adults, Asthma, Adult (DC) Additional Instructions: Please follow up with a primary care doctor. Your insurance is not accepted in the [facility] clinic. You have been started on dulera for your asthma; please take 2 puffs every 12 hours. You have been started on norvasc for your high blood pressure; please take once daily You have been started on Medrol dose pack, take it as directed. You have given an albuterol to take as needed, as directed. Please return to the ED for any new or worsening symptoms. Referrals: [facility] at [facility] [Outside] PCP,NO [Primary Care Provider] - <Sergei Ritter - Last Filed: 04/03/18 14:29> Provider - Provider Date of Admission: 03/31/18 18:08 Attending physician: Sergei Ritter MD Primary care physician: NO PRIMARY CARE PROVIDER Consults: 03/31/18 23:02 Inpatient ENGLISH [employer] Core Measures Referral Routine Comment: asthma Physician Instructions: Reason For Exam: eval Transition In Care/Readmission Reduction Routine Comment: asthma Physician Instructions: Reason For Exam: eval Hospital Course - Lab Results Lab Results: Most Recent Lab Values WBC 10.0 10^3/uL (4.5-11.0) 04/03/18 06:00 RBC 5.25 10^6/uL (3.5-6.1) 04/03/18 06:00 Hgb 15.4 g/dL (14.0-18.0) 04/03/18 06:00 Hct 47.3 % (42.0-52.0) 04/03/18 06:00 MCV 90.1 fl (80.0-105.0) 04/03/18 06:00 MCH 29.3 pg (25.0-35.0) 04/03/18 06:00 MCHC 32.6 g/dl (31.0-37.0) 04/03/18 06:00 RDW 14.7 % (11.5-14.5) H 04/03/18 06:00 Plt Count 245 10^3/uL (120.0-450.0) 04/03/18 06:00 MPV 10.7 fl (7.0-11.0) 04/03/18 06:00 Gran % 79.4 % (50.0-68.0) H 04/03/18 06:00 Lymph % (Auto) 15.2 % (22.0-35.0) L 04/03/18 06:00 [place] % (Auto) 5.4 % (1.0-6.0) 04/03/18 06:00 Eos % (Auto) 0.0 % (1.5-5.0) L 04/03/18 06:00 Baso % (Auto) 0.0 % (0.0-3.0) 04/03/18 06:00 Gran # 7.95 (1.4-6.5) H 04/03/18 06:00 Lymph # (Auto) 1.5 (1.2-3.4) 04/03/18 06:00 [place] # (Auto) 0.5 (0.1-0.6) 04/03/18 06:00 Eos # (Auto) 0.0 (0.0-0.7) 04/03/18 06:00 Baso # (Auto) 0.00 K/mm3 (0.0-2.0) 04/03/18 06:00 Sodium 137 mmol/L (132-148) 04/03/18 06:00 Potassium 4.7 mmol/L (3.6-5.0) 04/03/18 06:00 Chloride 105 mmol/L (98-107) 04/03/18 06:00 Carbon Dioxide 25 mmol/L (21-33) 04/03/18 06:00 Anion Gap 11 (10-20) 04/03/18 06:00 BUN 16 mg/dL (7-21) 04/03/18 06:00 Creatinine 0.8 mg/dl (0.8-1.5) 04/03/18 06:00 Est GFR ( Amer) > 60 04/03/18 06:00 Est GFR (Non-Af Amer) > 60 04/03/18 06:00 Random Glucose 141 mg/dL (70-110) H 04/03/18 06:00 Calcium 9.3 mg/dL (8.4-10.5) 04/03/18 06:00 Phosphorus 2.4 mg/dL (2.5-4.5) L 04/01/18 05:30 Magnesium 2.3 mg/dL (1.7-2.2) H 04/01/18 05:30 Total Bilirubin 0.4 mg/dL (0.2-1.3) 04/03/18 06:00 AST 27 U/L (17-59) 04/03/18 06:00 ALT 34 U/L (7-56) 04/03/18 06:00 Alkaline Phosphatase 60 U/L (38-126) 04/03/18 06:00 NT-Pro-B Natriuret Pep 186 pg/mL (0-450) 04/01/18 05:30 Total Protein 7.1 g/dL (5.8-8.3) 04/03/18 06:00 Albumin 4.1 g/dL (3.0-4.8) 04/03/18 06:00 Globulin 3.0 gm/dL 04/03/18 06:00 Albumin/Globulin Ratio 1.4 (1.1-1.8) 04/03/18 06:00 Influenza Typ A,B (EIA) Negative for flu a/b (NEGATIVE) 04/01/18 01:56 Attending/Attestation - Attestation I have personally seen and examined this patient.: Yes I have fully participated in the care of the patient.: Yes I have reviewed all pertinent clinical information, including history, physical exam and plan: Yes Notes (Text): 04/03/18 14:27 43 year old male with past medical history of asthma and history of noncompliance who is admitted for shortness of breath secondary to asthma exacerbation. He was started on iv steroids, azithromycin and albuterol with improvement of symptoms. His steroids were tapered. He was counselled on medication and outpatient follow up compliance. He was started on norvasc for hypertension. Patient is discharged home to follow up with [facility]. Discharged on tapering steroids and albuterol prn. Counselled on medication and outpatient follow up compliance. Sergei Ritter MD Hospitalist.
== END 2018-04-03 14:56 | disposition home or self-care (01) | DRG 97 ==
LOC: ED 14:46 → ERH 18:08 → 3RNO 19:23
PROVIDERS: ADMIT Internal Medicine; ATTEND Internal Medicine
PROC: 3E0F7GC Introduction of Other Therapeutic Substance into Respiratory Tract, Via Natural or Artificial Opening (ICD-10-PCS; principal; 2018-03-31)
DX: J45.901 Unspecified asthma with (acute) exacerbation (principal); I10 Essential (primary) hypertension; Z77.22 Contact with and (suspected) exposure to environmental tobacco smoke (acute) (chronic); Z87.891 Personal history of nicotine dependence; Z91.19 Patient's noncompliance with other medical treatment and regimen